=== PATIENT | female | born 2000 ===

== ENCOUNTER 2022-07-11 10:17 | Outpatient (CLI) | payer OTHER ==
--- NOTE | 2022-07-11 14:10 | Ultrasound Report ---
PROCEDURE: Head or Neck Soft Tissue INDICATIONS: ENLARGED THYROID TECHNIQUE: Real-time scanning was performed of the thyroid gland, with image documentation. COMPARISON: None FINDINGS: Right: Thyroid lobe measures 3.9 x 1.6 x 1.7 cm, and is homogeneous in echotexture. Left: Thyroid lobe measures 4.5 x 1.7 x 1.2 cm, and is homogenous in echotexture. Isthmus: 3 mm thick. No thyroid nodules. IMPRESSION: Normal sonographic appearance of the thyroid. No nodules. Normal size. Reviewed by: Rickey Taylor on 07/11/2022 2:08 PM PDT Approved by: Rickey Taylor on 07/11/2022 2:08 PM PDT Station ID: [id number]
== END 2022-07-11 10:18 | disposition home or self-care (01) ==
LOC: DI 10:17
PROVIDERS: ATTEND Physician Assistant
DX: E04.9 Nontoxic goiter, unspecified (principal); M54.50 Low back pain, unspecified; M25.551 Pain in right hip; M25.552 Pain in left hip

== ENCOUNTER 2022-07-11 10:39 | Outpatient (CLI) | payer OTHER ==
--- NOTE | 2022-07-11 15:48 | XRAY Report ---
PROCEDURE: Lumbar Spine 2 View INDICATIONS: LOW BACK PX, L HIP PX TECHNIQUE: 2 views of the lumbar spine were acquired. COMPARISON: None. FINDINGS: Bones: 5 [id number] vertebrae are present. There is loss of normal lumbar lordosis and otherwi se normal bony alignment. No vertebral body compression fractures. No suspicious bony lesions. Soft tissues: Overlying bowel gas pattern is normal. No suspicious soft tissue calcifications. IMPRESSION: No acute fracture. No osseous lesion. If symptoms and/or clinical suspicion for patholog y continue, further assessment with repeat plain films, or advanced imaging (e.g., CT, MRI, or bone s can) is recommended for further assessment. Reviewed by: Luda Richardson MD on 07/11/2022 3:46 PM PDT Approved by: Luda Richardson MD on 07/11/2022 3:46 PM PDT Station ID: [id number]
--- NOTE | 2022-07-11 15:48 | XRAY Report ---
PROCEDURE: Hips 2V BILAT INDICATIONS: LOW BACK PAIN, HIP PX TECHNIQUE: One view of the pelvis and one view of each hip. COMPARISON: None FINDINGS: Bones: No fractures or dislocations. No suspicious bony lesions. The visualized pelvic ring appear s intact. Soft tissues: No suspicious soft tissue calcifications or masses. IMPRESSION: No acute fracture. No osseous lesion. If symptoms and/or clinical suspicion for pathology continue, f urther assessment with repeat plain films, or advanced imaging (e.g., CT, MRI, or bone scan) is recom mended for further assessment. Reviewed by: Luda Richardson MD on 07/11/2022 3:47 PM PDT Approved by: Luda Richardson MD on 07/11/2022 3:47 PM PDT Station ID: [id number]
== END 2022-07-11 10:40 | disposition home or self-care (01) ==
LOC: DI 10:39
PROVIDERS: ATTEND Physician Assistant
DX: M54.50 Low back pain, unspecified (principal); M25.551 Pain in right hip; M25.552 Pain in left hip

== ENCOUNTER 2022-08-16 13:05 | Outpatient (CLI) | payer OTHER ==
--- NOTE | 2022-08-16 13:43 | SLEEP CARE CONSULTATION ---
Information from patient questionnaire entered by Rhett Fox. I have reviewed and concur with the information entered by Rhett Fox. This document represents the service I personally performed and the decisions made by me, Page Caraballo ARNP. History of Present Illness Service Date and Time: 08/16/2022 1305 Reason for Visit: New patient Accompanied by: Spouse Chief Complaint: reports: Insomnia, Snoring, Frequent awakenings at night Date of Onset: SINCE I CAN REMEMBER Usual bedtime: 10-11PM Time it takes to fall asleep: LESS THAN 10MINS Snores at night: Yes Observed to quit breathing while asleep: No Sleeps alone due to snoring: No Number of times waking at night: 3-4 Reasons for waking at night: reports: Choking, Snoring, Gasping for air, Pain, Bathroom Toss, Turn, or Twitch while sleeping: Yes Recalls having dreams: Yes Usually gets out of bed at: 9-10AM Feels refreshed in the morning: Yes (depends, sometimes not) Morning headache: Yes (almost daily; most resolve in AM but some last all day) Sleepy or fatigued during the day: No Ever fallen asleep while driving: Yes (drowsy driving; pulls over if sleepy) Takes day naps: Yes (2-3 short naps or one long one) Dreams during day naps: Yes Prior sleep studies: No Additional HPI information: I had the pleasure of seeing JACINTA ORTIZ today regarding the possibility of her having a sleep disorder. Her current complaints are frequent night awakenings, insomnia and snoring. She is accompanied by her today. She states she wakes up frequently and does not feel rested in the mornings. She will have to take naps during the day to feel rested, 2-3 daily. She averaged 15-30 minutes to fall asleep. She wakes up between 1-5 times a night. She will lay in bed and wait to fall asleep between 15 minutes to 2 hours. She snores loudly but her spouse will still sleep in same room. He denies noting any pauses in breathing. She states she wakes up several times gasping for air. She has difficulty with swallowing and will "choke" on solid foods, especially when the food particles gets stuck behind her large tonsils. She tells me that her father has sleep apnea and is using a CPAP machine. - Parasomnia Symptoms Ever been unable to move upon waking from sleep: Yes (2-3 times that can remember) Walks in sleep: No Talks in sleep: No Ever acted out dreams in sleep: No Ever felt weak in the knees when startled or emotional: Yes (unsure) Bothered by creepy, crawly, restless sensations in legs: Yes (if does a lot of exercise, has pin/needles lower ankles/legs) Problems with memory or concentration: Yes (both, memory seems to be worse) Subjective Initial [place] Sleepiness Scale score: 15 (08/16/22) Past Medical History Past Medical History: reports: Other (no significant medical history) Social History The patient's occupation is a [employer]. Patient is and lives in . Have you smoked in the past 12 months: No Alcohol use: Yes Alcohol amount and frequency: 1 SHOT EVERY FAMILY EVENT Caffeine use: Yes Caffeine amount and frequency: stopped coffee about 4 months ago Family History Family history of sleep disordered breathing: Yes Family Hx Sleep Apnea: Father: Snoring, Sleep apnea - Treated Allergies and Home Medications Known drug allergies: No Drug allergies reviewed: Yes Home medication list reviewed: Yes (no daily medications) Review of Systems Weight gain over past 5 years: 80 Weight loss over past 5 years: 27 Cardiovascular: denies: high blood pressure Respiratory: reports: shortness of breath Gastrointestinal: reports: difficulty swallowing (feels like choking when eating solids). denies: heartburn Neurological: reports: head trauma (lot concussions as a kid). denies: headaches, seizure Psychiatric: reports: claustrophobia Ear/Nose/Throat: reports: nasal congestion, sinus problems, dry mouth/throat (occasionally in the morning), hoarseness, injury to nose. denies: tonsillectomy, wisdom teeth removed Musculoskeletal: reports: joint pain, neck pain, back pain, muscle pain or cramping Physical Exam Vital signs obtained and entered by: RHETT Ramos MA Blood Pressure: 128/60 (LEFT ARM) Cuff size: regular Heart Rate: 76 O2 Saturation: 98 Height: 5 ft 8 in Weight: 173 lb 3.2 oz Body Mass Index: 26.3 BMI Classification: Overweight Neck circumference: 14 Mouth and throat: normal Soft palate: normal Hard palate: normal Uvula: normal Uvula visualization: 100% Mallampati Class I Tongue: normal in size Tonsils: 2+ Chin and jaw: normal size and position Neck: normal w/o lymphadenopathy or thyromegaly Heart: regular rate and rhythm Lungs: clear bilaterally Impression and Plan 1. Suspected Obstructive Sleep Apnea-Hypopnea Syndrome, as suggested by a history of loud and irregular snoring, gasping or choking in sleep, morning headache, frequent awakening during the night, unrefreshed sleep, cognitive impairment, and excessive daytime sleepiness. Narrow oropharynx and obesity are common predisposing factors for obstructive sleep apnea-hypopnea syndrome. I recommend proceeding to polysomnography to confirm the diagnosis and to assess severity. If the patient has significant sleep disordered breathing, a manual CPAP titration study will also be performed to find the optimal treatment pressure. I informed the patient of what the sleep studies involve and after some discussion, obtained agreement to proceed. The pathophysiology of obstructive sleep apnea-hypopnea syndrome was discussed with the patient and health risks of cardiovascular and cerebrovascular disease if not treated. Risks of drowsy driving discussed in detail and patient advised to avoid long di stance driving and to pullman car clerk at the first sign of drowsiness. Patient agreed to plan. * Schedule polysomnography +- manual CPAP titration study and return in 1-2 weeks after the study to discuss result and initiate therapy. * Avoid long distance driving or driving when feeling sleepy. * Avoid alcohol, sedative and muscle relaxant around bedtime. * Attempt to lose weight. * Review instructions provided by trained office staff on how to prepare for the sleep study. * Return for follow-up after sleep study completed. Counseling Topics: Weight loss health impact Visit Type: In Office Other Participants: Spouse/Significant Other Time Spent with Patient (minutes): 31 Provider Statement: I spent 100% of the Face to Face Visit with the patient with greater than 50% spent counseling the patient and coordination of care.
[2022-08-16 14:32] VITALS: BP 128/60
== END 2022-08-16 13:06 | disposition home or self-care (01) ==
LOC: SC 13:05
PROVIDERS: ATTEND Nurse Practitioner Family
DX: G47.10 Hypersomnia, unspecified (principal); G47.8 Other sleep disorders; R51.9 Headache, unspecified; R06.83 Snoring; E66.3 Overweight; Z68.26 Body mass index [BMI] 26.0-26.9, adult
CPT/HCPCS: 99203; 99212

== ENCOUNTER 2022-09-18 19:43 | Outpatient (CLI) | payer OTHER | END 2022-09-18 19:44 | disposition home or self-care (01) | LOC: SC 19:43 | PROVIDERS: ATTEND Nurse Practitioner Family | DX: G47.33 Obstructive sleep apnea (adult) (pediatric) (principal) | CPT/HCPCS: 95810 ==

== ENCOUNTER 2022-10-05 15:30 | Outpatient (CLI) | payer OTHER ==
--- NOTE | 2022-10-05 15:54 | SLEEP CARE CONSULTATION ---
Information from patient questionnaire entered by Jason Cruz. I have reviewed and concur with the information entered by Jason Cruz. This document represents the service I personally performed and the decisions made by , Page Caraballo ARNP. History of Present Illness Service Date and Time: 10/05/2022 1530 Initial [place] Sleepiness Scale score: 15 (08/16/22) Current [place] Sleepiness Scale score: 12 Additional HPI information: JACINTA ORTIZ returns for follow up and results of the recently performed polysomnography. Patient PSG shows mild obstructive sleep apnea with an average AHI of 6.9 and sheeba oxygen saturation of 89%. I explained the pathophysiology behind obstructive sleep apnea. We then spent quite a bit of time discussing different treatment options. For mild obstructive sleep apnea, surgery and oral appliance are alternatives to nasal CPAP therapy but in moderate or severe cases, nasal CPAP is the most effective and reliable treatment. Because apnea is primarily in supine position, then positional management therapy could be effective. Methods discussed such as positioning with pillows, using a T-shirt with tennis balls in the back or commercial products that have a pillow format on back to prevent supine sleep. I reviewed the impact of weight changes on sleep apnea and strongly recommended losing weight. After some discussion, the patient opted to go with the nasal CPAP therapy. Nasal autoCPAP set at 4-15 cmH20 will be ordered with rationale explained. A manual titration study will be ordered if unable to find optimal pressure with office adjustments. I explained how CPAP machine works and what to expect when using the machine. Using CPAP every night in order to get used to it was emphasized. Patient advised to put CPAP mask on before getting into bed so as not to fall asleep without CPAP. To assist acclimation to CPAP use, it could also be used for a short time during day while reading or watching TV. The patient was instructed to call the CPAP supplier to discuss any mechanical problem that may occur. If the mask given is uncomfortable or is difficult to keep on through the night even with adjustment, contact the CPAP supplier as many will replace with another mask style if notified before 30 days. If snoring or perceives is not getting enough air or too much air from the machine, notify this office. Patient counseled not drink alcohol less than 4 hours befor e bedtime as it can increase snoring and apnea. Patient was cautioned about risks of drowsy driving until sleepiness symptoms resolve. Patient denies drowsy driving. Sleep Study - Results Type of Sleep Study: Polysomnography Prior sleep studies: No Polysomnography/Home Sleep Study results: IMPRESSION: The quality of the study is good. The patient had normal sleep efficiency. The sleep architecture was abnormal for sleep fragmentation and reduced amount of time spent in REM and slow wave sleep (N3). Respiratory monitoring showed mild obstructive sleep apnea-hypopnea (AHI = 6.9) associated with frequent arousals, oxyhemoglobin desaturation and minimal hypoxia (sheeba oxygen saturation of 89%). The patient slept almost exclusively in supine position (supine AHI = 7.2; non-supine = 0.00). Snore was light in intensity. There was no significant periodic leg movement of sleep. Cardiac rhythm was normal sinus rhythm without significant arrhythmia. No abnormal behavior (parasomnia) observed during the night Allergies and Home Medications Known drug allergies: No Drug allergies reviewed: Yes Home medication list reviewed: Yes (no changes) Review of Systems Review of systems same as previous: Yes (no changes) Physical Exam Vital signs obtained and entered by: Page Archibald NP Blood Pressure: 112/51 Cuff size: wrist (right) Heart Rate: 73 O2 Saturation: 98 Height: 5 ft 8 in Weight: 188 lb Body Mass Index: 28.5 BMI Classification: Overweight Impression and Plan 1. Obstructive Sleep Apnea-Hypopnea Syndrome, mild, with lowest oxygen saturation of 89% and a component of upper airway resistance with an RDI of 27.1. Obviously this is the cause of the patients symptoms of unrefreshed sleep, and excessive daytime sleepiness. As mentioned above, the patient will be started on nasal autoCPAP therapy with pressure set at 4-15 cmH2O. Compliance guidelines also reviewed. A copy of compliance guidelines will be given for reference at check out. * Nasal auto CPAP therapy, pressure at 4-15 cm H2O. * Attempt to lose weight. * Avoid alcohol consumption near bedtime. * Avoid supine sleep until using CPAP. * The patient is again cautioned about driving until sleepiness completely resolves. * Return one month after CPAP obtained. I will assess response to therapy and compliance at that time. Counseling Topics: Sleeping position, Weight loss health impact Visit Type: In Office Time Spent with Patient (minutes): 20 Provider Statement: I spent 100% of the Face to Face Visit with the patient with greater than 50% spent counseling the patient and coordination of care.
[2022-10-05 15:59] VITALS: BP 112/51
== END 2022-10-05 15:31 | disposition home or self-care (01) ==
LOC: SC 15:30
PROVIDERS: ATTEND Nurse Practitioner Family
DX: G47.33 Obstructive sleep apnea (adult) (pediatric) (principal); E66.3 Overweight; Z68.28 Body mass index [BMI] 28.0-28.9, adult
CPT/HCPCS: 99212; 99213

== ENCOUNTER 2023-02-27 10:49 | Outpatient (CLI) | payer OTHER ==
--- NOTE | 2023-02-27 11:39 | Sleep Patient Instructions ---
Sleep Center Visit Summary - Patient Visit Information Reason for Visit: 1st compliance followup with PAP therapy - Patient Instructions Additional Instructions: You were here for follow up of CPAP therapy. You will be continued on CPAP therapy with pressure at 5-8 cmH2O. Please let us know if the pressure change is uncomfortable and we can make further adjustments of the pressure. You should follow up with sleep care in 1-2 months. You may contact us sooner for any questions or concerns. - Clinic Information Contact: [facility] [address] [place] [address] [email or web address] T: [phone]
--- NOTE | 2023-02-27 11:46 | SLEEP CARE CONSULTATION ---
Information from patient questionnaire entered by Batsheva Fox. I have reviewed and concur with the information entered by Batsheva Fox. This document represents the service I personally performed and the decisions made by me, Pgae Caraballo ARNP. History of Present Illness Service Date and Time: 02/27/2023 1049 Previous diagnosis: Mild, Obstructive Sleep Apnea-Hypopnea Syndrome AHI: 6.9 (with RDI 27.1 in 2022) Reason for follow up: first compliance Accompanied by: Partner Equipment type: CPAP (RESMED Airsense 11, s/u 10/2022) Equipment obtained from: [employer] ([employer]) Mask style: Full face Backup mask available: No (will keep old mask when replaced) Last cushion change: couple weeks Prior sleep studies: No Type of Sleep Study: Polysomnography (08/2022) HPI additional information: JACINTA ORTIZ was diagnosed to have mild, AHI 6.9 with RDI 27.1, obstructive sleep apnea-hypopnea syndrome and returned today for CPAP therapy first compliance follow-up. Sleep Study - Results Type of Sleep Study: Polysomnography (09/18/2022) Prior sleep studies: No CPAP Compliance Data - Data Reviewed with Patient Average duration of nightly device use: 3 hours 59 minutes Compliance rate %: 20 (04/21 days used) Current pressure setting (cmH2O): 4-15 (median 5.8, avg 9.3, max 10.9) Average residual AHI: 1.7 (RERA 0.3) Central apnea: 0.8 Obstructive apnea: 0.2 Hypopnea: 0.5 Average large leak: 0.2 L/min Subjective Missed days of use due to: reports: mask issues, other (Insomnia) Patient concerns: reports: aerophagia, mask discomfort, air blowing in eyes, mask leak noise, condensation in mask/hose. denies: nasal congestion, dry mouth, nose, throat, epistaxis Observed to snore while using device: No Current pressure setting perceived as: comfortable On therapy, patient: reports: other (not sure if helping). denies: drowsiness while driving Initial [place] Sleepiness Scale score: 15 (08/16/22) Current [place] Sleepiness Scale score: 11 Allergies and Home Medications Known drug allergies: No Drug allergies reviewed: Yes Home medication list reviewed: Yes (no changes) Review of Systems Review of systems same as previous: Yes (no changes) Physical Exam Vital signs obtained and entered by: PAGE MARTINEZ-Richard Blood Pressure: 107/58 Cuff size: wrist (right) Heart Rate: 69 O2 Saturation: 98 Height: 5 ft 8 in Weight: 188 lb 12.8 oz Body Mass Index: 28.7 BMI Classification: Overweight Impression and Plan 1. Obstructive Sleep Apnea-Hypopnea Syndrome, mild, with poor treatment compliance and good apnea control. On CPAP therapy, the patient has better sleep quality and is more rested overall. She has had difficulty with her compliance due to having aerophagia, mask discomfort with air blowing into her eyes and also some condensation. I reviewed with her how to adjust for the condensation by increasing her heated hose, who is covering and putting the machine lower than her head by the bedside. I will also adjust her pressure to 5-8 cmH2O to compensate for aerophagia and to make it more comfortable. I fit her to a DreamWear nasal pillows mask, small cushion, to see if this will work better than the fullface that she is getting a lot of air leaking into her eyes and leak noises waking her up. I will have her follow-up in 1 to 2 months so we can see if this mask change will work for her as well as to recheck her compliance. She voiced understanding and agreement with plan. Patient's apnea severity and rationale for treatment to reduce apnea, improve sleep quality and reduce cardiovascular and cerebrovascular events was reviewed. 2. Overweight, unspecified. Currently patients BMI is 28.7. Obesity increases the risk of apnea, CPAP pressure requirements and overall health risks especially cardiovascular and diabetes. Thus patient is advised to lose weight. * Fitted to Dreamwear nasal pillows mask, small cushion with good fit * Change auto CPAP pressure to 5-8 cmH2O * Notify me if snoring with mask or feeling that the pressure is too much or too little * Attempt to lose weight * Call this office if any problems using CPAP * Return for follow up in 1-2 months, or sooner if concerns arise Mask provided: Yes Counseling Topics: Spare mask, Weight loss health impact Follow up with Sleep Care in: 1-2 months Visit Type: In Office Time Spent with Patient (minutes): 26 Provider Statement: I spent 100% of the Face to Face Visit with the patient with greater than 50% spent counseling the patient and coordination of care.
[2023-02-27 12:36] VITALS: BP 107/58; O2SAT 98
== END 2023-02-27 10:50 | disposition home or self-care (01) ==
LOC: SC 10:49
PROVIDERS: ATTEND Nurse Practitioner Family
DX: G47.33 Obstructive sleep apnea (adult) (pediatric) (principal); E66.3 Overweight; Z68.28 Body mass index [BMI] 28.0-28.9, adult
CPT/HCPCS: 99212; 99213

== ENCOUNTER 2023-03-30 10:47 | Outpatient (CLI) | payer OTHER ==
--- NOTE | 2023-03-30 11:16 | Sleep Patient Instructions ---
Sleep Center Visit Summary - Patient Visit Information Reason for Visit: 1 month followup - Patient Instructions Additional Instructions: You were here for follow up of CPAP therapy. You will be continued on CPAP therapy with pressure at 5-8 cmH2O. I have written for a mask refitting, your CPAP supplier should reach out to you. If not, please call them to have this done. You should follow up with sleep care in 1-2 months. You may contact us sooner for any questions or concerns. - Clinic Information Contact: [facility] [address] [place] [id number] [email or web address] T: [phone]
--- NOTE | 2023-03-30 11:22 | SLEEP CARE CONSULTATION ---
Information from patient questionnaire entered by Rhett Fox. I have reviewed and concur with the information entered by Rhett Fox. This document represents the service I personally performed and the decisions made by me, Page Caraballo ARNP. History of Present Illness Service Date and Time: 03/30/2023 1047 Previous diagnosis: Mild, Obstructive Sleep Apnea-Hypopnea Syndrome AHI: 6.9 (with RDI 27.1 in 2022) Reason for follow up: one month (F/U) Equipment type: CPAP (RESMED Airsense 11, s/u 7 2022) Equipment obtained from: [facility] (not getting supplies yet, waiting on shipment) Mask style: Full face Backup mask available: Yes (other mask) Last cushion change: unsure Prior sleep studies: No Type of Sleep Study: Polysomnography HPI additional information: JACINTA ORTIZ was diagnosed to have mild, AHI 6.9 with RDI 27.1, obstructive sleep apnea-hypopnea syndrome and returned today for CPAP therapy one month follow-up. Sleep Study - Results Type of Sleep Study: Polysomnography Prior sleep studies: No CPAP Compliance Data - Data Reviewed with Patient Average duration of nightly device use: 4 HRS 0 MINS Compliance rate %: 40 (02/26/23-03/27/23; 22/30 days used) Current pressure setting (cmH2O): 5-8 Average residual AHI: 1.8 (RERA 0.1) Central apnea: 0.7 Obstructive apnea: 0.6 Average large leak: 1.1 L/min Subjective Missed days of use due to: reports: mask issues (fell and chipped tooth; pain with nasal mask - using full face) Patient concerns: reports: mask discomfort, nasal congestion (only with full face mask), dry mouth, nose, throat Observed to snore while using device: No Current pressure setting perceived as: comfortable On therapy, patient: reports: sleeping better, awakening more refreshed, being more awake and alert during the day, more rested overall. denies: drowsiness while driving Initial [place] Sleepiness Scale score: 15 (08/16/22) Current [place] Sleepiness Scale score: 7 (03/30/23) Allergies and Home Medications Known drug allergies: No Drug allergies reviewed: Yes Home medication list reviewed: Yes (no changes) Review of Systems Review of systems same as previous: Yes (NO CHANGE) Physical Exam Vital signs obtained and entered by: RHETT Ramos MA Blood Pressure: 108/62 (LEFT ARM) Cuff size: regular Heart Rate: 68 O2 Saturation: 97 Height: 5 ft 8 in Weight: 186 lb 9.6 oz Body Mass Index: 28.3 BMI Classification: Overweight Impression and Plan 1. Obstructive Sleep Apnea-Hypopnea Syndrome, mild, with fair treatment compliance and good apnea control. On CPAP therapy, the patient has better sleep quality and is more rested overall. She fell and chipped a tooth about a month ago and has had harder time wearing nasal mask because of pain. This has affected her compliance. She likes the nasal mask better than the full face one she is trying to use while her mouth heals. She would like a different headgear for her nasal mask because the current one pulls a lot on her hair. I will write for a mask refitting for nasal mask, either cushion or pillows. She says that [facility] [place] has not sent her any new supplies, she has talked to them and they said they were shipped but she has not received them yet. I advised her to call again and if no response to call office for assistance. She voiced understanding. Patient's apnea severity and rationale for treatment to reduce apnea, improve sleep quality and reduce cardiovascular and cerebrovascular events was reviewed. 2. Overweight, unspecified. Currently patients BMI is 28.3. Obesity increases the risk of apnea, CPAP pressure requirements and overall health risks especially cardiovascular and diabetes. Thus patient is advised to lose weight. * Continue auto CPAP pressure at 5-8 cmH2O * Mask fitting for nasal mask, more minimal headgear * Notify me if snoring with mask or feeling that the pressure is too much or too little * Attempt to lose weight * Call this office if any problems using CPAP * Return for follow up in 1-2 months, or sooner if concerns arise Counseling Topics: Spare mask, Weight loss health impact Follow up with Sleep Care in: 1-2 months Visit Type: In Office Time Spent with Patient (minutes): 21 Provider Statement: I spent 100% of the Face to Face Visit with the patient with greater than 50% spent counseling the patient and coordination of care.
[2023-03-30 11:28] VITALS: BP 108/62; O2SAT 97
== END 2023-03-30 10:48 | disposition home or self-care (01) ==
LOC: SC 10:47
PROVIDERS: ATTEND Nurse Practitioner Family
DX: G47.33 Obstructive sleep apnea (adult) (pediatric) (principal); E66.3 Overweight; Z68.28 Body mass index [BMI] 28.0-28.9, adult
CPT/HCPCS: 99212; 99213

== ENCOUNTER 2023-04-05 13:25 | Outpatient (CLI) | payer OTHER | END 2023-04-05 13:26 | disposition critical access hospital (66) | LOC: EMS 13:25 | DX: R56.9 Unspecified convulsions (principal); R51.9 Headache, unspecified; R11.0 Nausea | CPT/HCPCS: A0425; A0427 ==

== ENCOUNTER 2023-04-05 13:48 | Emergency (ER) | payer OTHER ==
--- NOTE | 2023-04-05 13:55 | ED Physician Documentation ---
PD HPI SEIZURE - Stated complaint Stated Complaint: SEIZURE - History obtained from History obtained from: Patient, EMS - Additional information Additional information: She has a history of seizure disorder but not since she was a child. Not on any antiepileptics. Yesterday she was drinking moderately heavily and used some cannabis. Today she was at home with her and on the couch and had a tonic-clonic seizure lasting about a minute. She does not feel injured. She does feel dizzy. Mostly she is anxious because of her previous "bad experience" in the hospital. PD PAST MEDICAL HISTORY - Present Medications Home Medications: Ambulatory Orders Medication Instructions Recorded Confirmed Cetirizine [ZyrTEC] 10 mg PO DAILY 04/05/23 04/05/23 - Allergies Allergies/Adverse Reactions: Allergies Allergy/AdvReac Type Severity Reaction Status Date / Time No Known Drug Allergies Allergy Verified 04/05/23 14:06 PD ED PE NORMAL - Vitals Vital signs reviewed: Yes - General General: Alert and oriented X 3, Other (Tearful and anxious) - HEENT HEENT: PERRL, EOMI, Pharynx benign (No tongue bite) - Neck Neck: Supple, no meningeal sign, No bony TTP - Cardiac Cardiac: RRR, No murmur - Respiratory Respiratory: No respiratory distress - Abdomen Abdomen: Non tender - Neuro Neuro: Alert and oriented X 3, Normal speech Eye Opening: Spontaneous Motor: Obeys Commands Verbal: Oriented GCS Score: 15 Results - Vitals Vitals: Vital Signs - 24 hr 04/05/23 13:57 Temperature 36.6 C Heart Rate 95 Respiratory 18 Rate Blood Pressure 122/78 O2 Saturation 100 Oxygen O2 Source Room air - EKG (time done) 1426 EKG releavant findings:: EKG personally interpreted by author of this note. Relevant findings are: Rate: Rate (enter#) (84) Rhythm: NSR [place]: Normal Intervals: Normal LA. No: Prolonged QT QRS: Normal Ischemia: Normal ST segments - Labs Labs: Laboratory Tests 04/05/23 04/05/23 14:17 14:27 Sodium 138 Potassium 4.0 Chloride 105 Carbon Dioxide 25 Anion Gap 8.0 BUN 11 Creatinine 0.8 Estimated GFR (MDRD) 91 Glucose 77 Calcium 9.4 Magnesium 2.0 Total Bilirubin 0.4 AST 13 ALT 8 L Alkaline Phosphatase 59 Total Protein 7.4 Albumin 4.3 Globulin 3.1 Albumin/Globulin Ratio 1.4 Urine Color YELLOW Urine Clarity CLEAR Urine pH 7.0 Ur Specific [place] 1.025 Urine Protein 100 H Urine Glucose (UA) NEGATIVE Urine Ketones NEGATIVE Urine Occult Blood NEGATIVE Urine Nitrite NEGATIVE Urine Bilirubin NEGATIVE Urine Urobilinogen 0.2 (NORMAL) Ur Leukocyte Esterase NEGATIVE Urine RBC 0-5 Urine WBC 0-3 Ur Squamous Epith Cells MOD Squamous H Urine Bacteria Few Urine Mucus Few Strands Ur Microscopic Review INDICATED Urine Culture Comments NOT INDICATED Urine HCG, Qual NEGATIVE Urine Opiates Screen NEGATIVE Ur Buprenorphine Scrn NEGATIVE Ur Oxycodone Screen NEGATIVE Urine Methadone Screen NEGATIVE Ur Barbiturates Screen NEGATIVE Ur Tricyclics Screen NEGATIVE Ur Phencyclidine Scrn NEGATIVE Ur Amphetamine Screen NEGATIVE U Methamphetamines Scrn NEGATIVE U Benzodiazepines Scrn NEGATIVE Urine Cocaine Screen NEGATIVE U Cannabinoids Screen POSITIVE H Ur Drug Screen Comment CUTOFF CONC BELOW: Ethyl Alcohol < 10.0 - Rads (name of study) CT of the head is unremarkable Relevant Findings:: Final report received, EMP independent interpretation of test PD Medical Decision Making - ED course ED course: 22-year-old woman presents after a seizure. I would define this is a new onset seizure since reportedly her last seizure was at the age of 7. Diagnostic testing in the emergency department consisted of a CMP which was normal, normal urinalysis and test. Negative alcohol and toxicology screening with the exception of cannabis. EKG was done without findings suggestive of underly ing heart disease or arrhythmia. Departure - Departure Disposition: 01 Home, Self Care Clinical Impression: Seizure Condition: Good Instructions: ED Seizure New Onset Unk Cause Comments: Per [place] state law you are not allowed to drive for the next 6 months until seizure-free or unless cleared by a neurologist. You should follow-up with a neurologist, call your primary care physician for referral tomorrow. Until cleared by neurology should also not do anything where you would be in danger should you have another seizure such as go up on ladders, swim alone, operate heavy machinery. Abstain from alcohol and do not use cannabis heavily.
[2023-04-05 14:08] VITALS: O2SAT 100
[2023-04-05 14:32] LABS: BILIRUBIN,URINE NEGATIVE (NEGATIVE); GLUCOSE, URINE (UA) NEGATIVE (NEGATIVE); KETONES,URINE (UA) NEGATIVE (NEGATIVE); LEUKOCYTE ESTERASE, URINE NEGATIVE (NEGATIVE); NITRITE,URINE NEGATIVE (NEGATIVE); OCCULT BLOOD,URINE NEGATIVE (NEGATIVE); PROTEIN,URINE 100 mg/dL (NEGATIVE); UROBILINOGEN,URINE 0.2 (NORMAL) E.U./dL (NORMAL)
[2023-04-05 14:33] LABS: CLARITY,URINE CLEAR (CLEAR); HCG UR QUAL NEGATIVE
[2023-04-05 14:35] LABS: ALBUMIN 4.3 g/dL (3.2-5.5); ALBUMIN/GLOBULIN RATIO 1.4 (1.0-2.2); ALKALINE PHOSPHATASE 59 IU/L (42-121); ALT ALANINE AMINOTRANSFERASE 8 IU/L (10-60); AST ASPARTATE AMINOTRANSFERASE 13 IU/L (10-42); BILIRUBIN,TOTAL 0.4 mg/dL (0.2-1.0); BUN - BLOOD UREA NITROGEN 11 mg/dL (6-20); CALCIUM 9.4 mg/dL (8.5-10.3); CARBON DIOXIDE - CO2 25 mmol/L (21-32); CHLORIDE 105 mmol/L (101-111); CREATININE 0.8 mg/dL (0.6-1.3); ETOH - ETHANOL < 10.0 mg/dL; GFR - MDRD 91 (>89); GLUCOSE 77 mg/dL (74-104); SODIUM 138 mmol/L (135-145); TOTAL PROTEIN 7.4 g/dL (6.4-8.9)
[2023-04-05 14:39] LABS: BACTERIA,URINE Few /HPF (None Seen); MUCUS,URINE Few Strands; RBC,URINE 0-5 /HPF (0-5); SQUAMOUS EPITHELIAL CELL,UR MOD Squamous (<= Few); WBC,URINE 0-3 /HPF (0-5)
[2023-04-05 14:41] LABS: AMPHETAMINE SCREEN,URINE NEGATIVE (NEGATIVE); BARBITURATE SCREEN,UR NEGATIVE (NEGATIVE); BENZODIAZEPINES SCREEN, URINE NEGATIVE (NEGATIVE); BUPRENORPHINE SCREEN, URINE NEGATIVE (NEGATIVE); COCAINE SCREEN URINE NEGATIVE (NEGATIVE); METHADONE SCREEN, URINE NEGATIVE (NEGATIVE); METHAMPHETAMINES SCREEN, URINE NEGATIVE (NEGATIVE); OPIATE SCREEN, URINE NEGATIVE (NEGATIVE); OXYCODONE SCREEN, URINE NEGATIVE (NEGATIVE); THC CANNABINOID SCREEN, URINE POSITIVE (NEGATIVE); TRICYCLIC ANTIDEPRESSANT,URINE NEGATIVE (NEGATIVE)
--- NOTE | 2023-04-05 15:20 | CT Report ---
PROCEDURE: HEAD WO INDICATIONS: seizure TECHNIQUE: Noncontrast 4.5 mm thick angled axial sections acquired from the foramen magnum to the vertex. For r adiation dose reduction, the following was used: automated exposure control, adjustment of mA and/or kV according to patient size. COMPARISON: None. FINDINGS: Image quality: Excellent. CSF spaces: Basal cisterns are patent. No extra-axial fluid collections. Ventricles are normal in size and shape. Brain: No midline shift. No intracranial masses or hemorrhage. Arzola-white matter interface is norm al. Skull and face: Calvarium and visualized facial bones are intact, without suspicious lesions. Sinuses: Visualized sinuses and mastoids are clear. IMPRESSION: No acute intracranial pathology. Reviewed by: Luda Richardson MD on 04/05/2023 3:18 PM PST Approved by: Luda Richardson MD on 04/05/2023 3:18 PM [facility] Station ID: [id number]
[2023-04-05 15:55] VITALS: BP 108/66
== END 2023-04-05 16:01 | disposition home or self-care (01) ==
LOC: EDUNIT# → ED 13:48
DX: R56.9 Unspecified convulsions (principal)
CPT/HCPCS: 36415; 80053; 80306; 80320; 81001; 81003; 81025; 83735; 87086; 93005; 99284

== ENCOUNTER 2023-04-05 22:09 | Emergency (ER) | payer OTHER ==
[2023-04-05] MEDS ORDERED: ONDANSETRON ODT 4 MG TABLET TL STA (22:37)
[2023-04-05] MEDS ORDERED: levETIRAcetam 250 MG TABLET PO STA (22:39)
--- NOTE | 2023-04-05 22:44 | ED Physician Documentation ---
PD HPI SEIZURE - Stated complaint Stated Complaint: SEIZURE/VOMIT - Chief complaint Chief Complaint: Neuro - History obtained from History obtained from: Patient, Family (spouse) - Additional information Additional information: 22yF with pmh childhood seizure disorder (last seizure at age 7) p/w recurrent seizure today. patient was seen earlier today for first time gen tonic clonic seizure with full return to baseline and had bloodwork, ct and ekg that were unremarkable. she returned home and had second GTC seizure around 8pm with return to baseline. patient c/o nausea and feeling tired but otherwise denies complaints. Review of Systems Constitutional: denies: Fever, Chills Eyes: denies: Loss of vision, Photophobia Nose: denies: Rhinorrhea / runny nose Throat: denies: Sore throat Cardiac: denies: Chest pain / pressure, Palpitations Respiratory: denies: Dyspnea GI: reports: Nausea, Vomiting. denies: Abdominal Pain, Diarrhea : denies: Dysuria Musculoskeletal: denies: Neck pain, Back pain Neurologic: reports: Seizure. denies: Focal weakness, Numbness PD PAST MEDICAL HISTORY - Past Medical History Past Medical History: Yes Cardiovascular: None Respiratory: None Neuro: Seizure disorder Endocrine/Autoimmune: None GI: None MANAGER DRUG SAFETY: None : None HEENT: None Psych: None Musculoskeletal: None, Chronic back pain Derm: None - Past Surgical History Past Surgical History: No - Present Medications Home Medications: Ambulatory Orders Medication Instructions Recorded Confirmed Cetirizine [ZyrTEC] 10 mg PO DAILY 04/05/23 04/05/23 Levetiracetam [Keppra] 1,000 mg PO BID #60 tablet 04/05/23 - Allergies Allergies/Adverse Reactions: Allergies Allergy/AdvReac Type Severity Reaction Status Date / Time No Known Drug Allergies Allergy Verified 04/05/23 22:24 - Social History Does the pt smoke?: No Smoking Status: Never smoker Does the pt drink ETOH?: No Does the pt have substance abuse?: No - Immunizations Immunizations are current?: Yes - POLST Patient has POLST: No PD ED PE NORMAL - Vitals Vital signs reviewed: Yes - General General: Alert and oriented X 3, No acute distress, Well developed/nourished - HEENT HEENT: Atraumatic, PERRL, EOMI - Neck Neck: Supple, no meningeal sign - Cardiac Cardiac: RRR - Respiratory Respiratory: No respiratory distress, Clear bilaterally - Abdomen Abdomen: Non tender, Non distended - Derm Derm: Normal color, Warm and dry - Neuro Neuro: Alert and oriented X 3, contract preparer 2-12 intact, No motor deficit, No sensory deficit, Normal speech Eye Opening: Spontaneous Motor: Obeys Commands Verbal: Oriented GCS Score: 15 - Psych Psych: Normal mood, Normal affect Results - Vitals Vitals: Vital Signs - 24 hr 04/05/23 04/05/23 22:10 22:24 Temperature 36.1 C L 36.1 C L Heart Rate 101 H 101 H Respiratory 22 22 Rate Blood Pressure 120/92 H 120/92 H O2 Saturation 99 99 Oxygen O2 Source Room air PD Medical Decision Making - ED course ED course: 22-year-old woman with history of childhood seizure disorder presents with 2 seizures with return to baseline in between today. Initially she had unremarkable workup including CT head, lab work, EKG, and decision was made to discharge without antiseizure medicine to follow-up with primary care provider for referral to neurology. She then had a second seizure with postictal nausea and vomiting return to the emergency department. She has normal neurological exam here in the ED and responded well to oral Zofran, tolerating p.o. Antiseizure medicine was initiated in the ED and prescription sent el ectronically to her pharmacy. Referral provided for neurology. Return precautions given. Departure - Departure Disposition: 01 Home, Self Care Clinical Impression: Seizure Condition: Stable Instructions: ED Seizure Recurrent Follow-Up: Mala Gallegos MD [Physician No Access] - Yoly Polanco MD [Physician No Access] - Prescriptions: Levetiracetam [Keppra] 1,000 mg PO BID #60 tablet Comments: You were seen in the emergency department for recurrent seizure. Prescription for antiseizure medicine was sent electronically to [facility] in [place]. Please follow-up with neurology and return to the emergency department if you have any new or worsening symptoms or other concerns. Forms: PCP List
[2023-04-06 00:44] VITALS: BP 106/50; O2SAT 97
== END 2023-04-06 00:25 | disposition home or self-care (01) ==
LOC: ED 22:09
DX: R56.9 Unspecified convulsions (principal); R11.2 Nausea with vomiting, unspecified
CPT/HCPCS: 36415; 70450; 80053; 80306; 80320; 81001; 81025; 83735; 93005; 99284; A9270; Q0162; 81003; 87086

== ENCOUNTER 2023-05-24 10:41 | Outpatient (CLI) | payer OTHER ==
--- NOTE | 2023-05-24 11:18 | Sleep Patient Instructions ---
Sleep Center Visit Summary - Patient Visit Information Reason for Visit: 7-week follow-up - Patient Instructions Instructions Attached: Apnea Sleep Mouthpieces Additional Instructions: You have opted for an oral mandibular appliance to control your sleep apnea. A list of certified dentists in the area was provided for you to find a dentist to have your oral appliance made. Once you have the device, please call and make a follow up appointment. We need to see you after you have been using the appliance for a month. We will evaluate your response to therapy and order a follow up sleep study to check efficiency of treatment. Please call office to schedule a follow up appointment in the sleep care office one month after obtaining new device. - Clinic Information Contact: [facility] [address] [place] [address] [email or web address] T: [phone]
--- NOTE | 2023-05-24 11:22 | SLEEP CARE CONSULTATION ---
Information from patient questionnaire entered by Batsheva Fox. I have reviewed and concur with the information entered by Batsheva Fox. This document represents the service I personally performed and the decisions made by , Page Caraballo ARNP. History of Present Illness Service Date and Time: 05/24/2023 1041 Previous diagnosis: Mild, Obstructive Sleep Apnea-Hypopnea Syndrome AHI: 6.9 Reason for follow up: other (7 WEEK F/U) Equipment type: CPAP (RESMED SD) Equipment obtained from: [employer] (hard time getting right supplies; returned machine) Prior sleep studies: No Type of Sleep Study: Polysomnography (09/18/2022) HPI additional information: JACINTA ORTIZ was diagnosed to have mild, AHI 6.9, obstructive sleep apnea- hypopnea syndrome and returned today for review of her therapy options, seven weeks follow-up. Sleep Study - Results Type of Sleep Study: Polysomnography (09/18/2022) Prior sleep studies: No CPAP Compliance Data - Data Reviewed with Patient Average duration of nightly device use: 2 hours 58 minutes Compliance rate %: 13 ( days used) Current pressure setting (cmH2O): 5-8 Average residual AHI: 3.6 Compliance data discussion: Patient returned machine. No longer using CPAP. Subjective On therapy, patient: reports: sleeping better, more rested overall. denies: drowsiness while driving Initial [place] Sleepiness Scale score: 15 (08/16/22) Current [place] Sleepiness Scale score: 9 Allergies and Home Medications Known drug allergies: No Drug allergies reviewed: Yes Home medication list reviewed: Yes (no changes) Allergy and home medication list: Allergies No Known Drug Allergies Allergy (Verified 05/22/23 14:48) Review of Systems Review of systems same as previous: Yes (no changes) Physical Exam Vital signs obtained and entered by: CHRISTEN SAHU Blood Pressure: 103/57 Cuff size: wrist (left) Heart Rate: 63 O2 Saturation: 98 Height: 5 ft 8 in Weight: 181 lb 6.4 oz Body Mass Index: 27.6 BMI Classification: Overweight Impression and Plan 1. Obstructive Sleep Apnea-Hypopnea Syndrome, mild. The patient chose an oral appliance to treat their apnea. A follow up will be made to see if appliance has reduced symptoms. If so, another polysomnography will be ordered with use of the oral appliance to check efficacy in reducing apnea. She was given a list of dentists in the area that are qualified to make the oral appliances. She will need to reach out to them and find one that can work with her insurance. She will call us when she has her new device for follow-up. She voiced understanding and agreement with this plan of care. Patient's apnea severity and rationale for treatment to reduce apnea, improve sleep quality and reduce cardiovascular and cerebrovascular events was reviewed. 2. Overweight, unspecified. Currently patients BMI is 27.6. Obesity increases the risk of apnea, CPAP pressure requirements and overall health risks especially cardiovascular and diabetes. Thus patient is advised to continue to try to lose weight. * Oral Appliance * Continue to try to lose weight * Call this office if any problems * Return for follow up in one month after obtaining new oral device, or sooner if concerns arise Counseling Topics: Weight loss health impact Prescriptions: Other (Oral Device) Visit Type: In Office Time Spent with Patient (minutes): 16 Provider Statement: I spent 100% of the Face to Face Visit with the patient with greater than 50% spent counseling the patient and coordination of care.
[2023-05-24 11:25] VITALS: BP 103/57; O2SAT 98
== END 2023-05-24 10:42 | disposition home or self-care (01) ==
LOC: SC 10:41
PROVIDERS: ATTEND Nurse Practitioner Family
DX: G47.33 Obstructive sleep apnea (adult) (pediatric) (principal); E66.3 Overweight; Z68.27 Body mass index [BMI] 27.0-27.9, adult
CPT/HCPCS: 99212

== ENCOUNTER 2023-07-18 11:40 | Outpatient (CLI) | payer OTHER | END 2023-07-18 23:59 | disposition critical access hospital (66) | LOC: EMS 11:40 | DX: R56.9 Unspecified convulsions (principal) | CPT/HCPCS: A0425; A0427 ==

== ENCOUNTER 2023-07-18 12:07 | Emergency (ER) | payer OTHER ==
--- NOTE | 2023-07-18 12:11 | ED Physician Documentation ---
PD HPI SEIZURE - Stated complaint Stated Complaint: SZ - History obtained from History obtained from: EMS - Additional information Additional information: 24-year-old female transitioning to male. Has a history of seizure disorder as a child and was seen in March for seizures here. At that time was placed on Keppra 1000 mg p.o. twice daily. EMS states she has not been taking it and it is unclear if she has had any follow-up since then. Has had approximately 4 seizures today. She also sees on the road on the way here and received 5 mg of intramuscular Versed. On arrival she is postictal and nonverbal so all of the history is from EMS. PD PAST MEDICAL HISTORY - Past Medical History Cardiovascular: None Respiratory: None Neuro: Seizure disorder Endocrine/Autoimmune: None GI: None GEOGRAPHIC INFORMATION SYSTEMS ENGINEER: None : None HEENT: None Psych: None Musculoskeletal: None, Chronic back pain Derm: None - Past Surgical History Past Surgical History: No - Present Medications Home Medications: Ambulatory Orders Medication Instructions Recorded Confirmed Cetirizine [ZyrTEC] 10 mg PO DAILY 04/05/23 04/05/23 Levetiracetam [Keppra] 1,000 mg PO BID #60 tablet 04/05/23 Topiramate 50 mg PO DAILY #90 tablet 07/18/23 oxyCODONE [Roxicodone] 5 mg PO Q4-6H PRN #7 tablet 07/18/23 - Allergies Allergies/Adverse Reactions: Allergies Allergy/AdvReac Type Severity Reaction Status Date / Time No Known Drug Allergies Allergy Verified 05/22/23 14:48 - Social History Does the pt smoke?: No Smoking Status: Never smoker Does the pt drink ETOH?: No Does the pt have substance abuse?: No - Immunizations Immunizations are current?: Yes - POLST Patient has POLST: No PD ED PE NORMAL - Vitals Vital signs reviewed: Yes - General General: Other (Sonorous respirations but appearing to protect her airway. No blood from the oropharynx. Kind of flailing around and responsive to pain, but not responsive to voice.) - HEENT HEENT: Other ([place] sluggishly reactive pupils) - Neck Neck: Supple, no meningeal sign, No bony TTP - Cardiac Cardiac: RRR, No murmur - Respiratory Respiratory: No respiratory distress - Abdomen Abdomen: Non tender - Neuro Neuro: Other (Moving all 4 extremities) Eye Opening: None Motor: Localizes to Pain Verbal: None GCS Score: 7 Results - Vitals Vitals: Vital Signs - 24 hr 07/18/23 07/18/23 07/18/23 12:13 12:45 13:15 Temperature 36.7 C Heart Rate 140 H 112 H 108 H Respiratory 40 H 18 16 Rate Blood Pressure 122/59 L 113/79 O2 Saturation 95 94 98 07/18/23 14:00 Temperature Heart Rate 100 Respiratory 18 Rate Blood Pressure O2 Saturation 100 Oxygen O2 Source Room air - Labs Labs: Laboratory Tests 07/18/23 07/18/23 13:35 13:35 Sodium 136 Potassium 4.2 Chloride 108 Carbon Dioxide 20 L Anion Gap 8.0 BUN 13 Creatinine 0.8 Estimated GFR (MDRD) 91 Glucose 110 H Calcium 9.4 Total Bilirubin 0.4 AST 17 ALT 9 L Alkaline Phosphatase 62 Total Protein 7.2 Albumin 4.2 Globulin 3.0 Albumin/Globulin Ratio 1.4 Serum HCG, Qual NEGATIVE PD Medical Decision Making - ED course ED course: 22-year-old who is transitioning from female to male has an uncontrolled seizure disorder. Noncompliant with Keppra reportedly. Further history from spouse at 12:27 PM who is now at the bedside. States patient has not been taking Keppra due to side effects, but unclear what side effects there were. Has seen primary care since being here in March but not neurology yet and is being referred. Plan to load with Keppra but may need a different home-going agent, will have to reassess what the side effects were when patient is no longer postictal. On recheck at 2:30 PM now much more awake and conversant. In the interim CMP and test were normal/negative save mild decrease in bicarb likely due to seizure. Patient states was noncompliant with Keppra because of migraines. Given the history of migraines and intolerance to Keppra, topiramate would seem like a good choice to me pending follow-up. Departure - Departure Disposition: Home, Self Care Clinical Impression: Seizure Condition: Good Record reviewed to determine appropriate education?: Yes Instructions: ED Seizure Recurrent Prescriptions: oxyCODONE [Roxicodone] 5 mg PO Q4-6H PRN #7 tablet PRN Reason: Pain Topiramate 50 mg PO DAILY #90 tablet Comments: I sent your prescription electronically to the [facility] in [place]. Per [facility] law you cannot drive until 6 months seizure-free or cleared by a neurologist. Continue to work with your primary care physician for neurology referral and refills. Return if worse. We started the seizure medicine at a lower dose, you are going to take 1 tablet a day, after a week increase it to 2 tablets a day, and after another week increase it to 2 tablets twice a day. If you develop significant/intolerable side effects go back down to the previous dose.
[2023-07-18] MEDS: levETIRAcetam INJ 1,000 MG in SODIUM CHLORIDE 0.9% 100ML 100 ML IV STA (12:27)
[2023-07-18] MEDS: ONDANSETRON 4 MG/2 ML VIAL IVP STA (13:20)
[2023-07-18 14:02] LABS: ALBUMIN 4.2 g/dL (3.2-5.5); ALBUMIN/GLOBULIN RATIO 1.4 (1.0-2.2); BILIRUBIN,TOTAL 0.4 mg/dL (0.2-1.0); CALCIUM 9.4 mg/dL (8.5-10.3); CREATININE 0.8 mg/dL (0.6-1.3); HCG,QUALITATIVE BLOOD NEGATIVE; POTASSIUM 4.2 mmol/L (3.5-4.5); TOTAL PROTEIN 7.2 g/dL (6.4-8.9)
[2023-07-18] MEDS: KETOROLAC 15 MG/ML VIAL IVP STA (15:55)
[2023-07-18] MEDS: HYDROmorphone 1 MG/ML CARPUJECT IVP STA (15:56)
[2023-07-18 17:38] VITALS: BP 126/77; O2SAT 95
== END 2023-07-18 17:33 | disposition home or self-care (01) ==
LOC: EDUNIT# → ED 12:07
DX: G40.909 Epilepsy, unspecified, not intractable, without status epilepticus (principal); T42.6X6A Underdosing of other antiepileptic and sedative-hypnotic drugs, initial encounter; F64.0 Transsexualism
CPT/HCPCS: 36415; 80053; 84703; 96365; 96375; 99284; J1170

== ENCOUNTER 2023-08-16 09:27 | Outpatient (CLI) | payer OTHER | END 2023-08-16 23:59 | disposition critical access hospital (66) | LOC: EMS 09:27 | DX: R56.9 Unspecified convulsions (principal) | CPT/HCPCS: A0425; A0427 ==

== ENCOUNTER 2023-08-16 09:50 | Emergency (ER) | payer OTHER ==
--- NOTE | 2023-08-16 10:00 | ED Physician Documentation ---
PD HPI SEIZURE - Stated complaint Stated Complaint: SZ - History obtained from History obtained from: Patient - History of Present Illness Timing - onset: Today Witnessed: Witnessed Number of seizures: Multiple (has had 3 today, initial 2 at home and one enroute in EMS.) Description of seizure activity: Generalized Associated symptoms: No: Headache History of seizures: Known seizure disorder Contributing factors: Changed meds (had started on new AED recently at low dose, as was not taking Keppra due to some unknown side effect. 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 : None HEENT: None Psych: None Musculoskeletal: None, Chronic back pain Derm: None - Past Surgical History Past Surgical History: No - Present Medications Home Medications: Ambulatory Orders Medication Instructions Recorded Confirmed Cetirizine [ZyrTEC] 10 mg PO DAILY 04/05/23 04/05/23 Levetiracetam [Keppra] 1,000 mg PO BID #60 tablet 04/05/23 Topiramate 50 mg PO DAILY #90 tablet 07/18/23 oxyCODONE [Roxicodone] 5 mg PO Q4-6H PRN #7 tablet 07/18/23 diazePAM [Valium] 5 mg PO BID #10 tablet 08/16/23 - Allergies Allergies/Adverse Reactions: Allergies Allergy/AdvReac Type Severity Reaction Status Date / Time No Known Drug Allergies Allergy Verified 08/16/23 10:15 - Social History Does the pt smoke?: No Smoking Status: Never smoker Does the pt drink ETOH?: No Does the pt have substance abuse?: No - Immunizations Immunizations are current?: Yes - POLST Patient has POLST: No PD ED PE NORMAL - Vitals Vital signs reviewed: Yes - General General: Well developed/nourished. No: Alert and oriented X 3 (arrives somewhat anxious and restless, able to follow direction sluggishly. Wide eyed and seems confused, c/w post ictal phase. ) - HEENT HEENT: Atraumatic, Other (tongue abrasions without bleeding. ) - Neck Neck: Supple, no meningeal sign, No adenopathy - Cardiac Cardiac: RRR, No murmur - Respiratory Respiratory: No respiratory distress, Clear bilaterally - Abdomen Abdomen: Soft, Non tender - Derm Derm: Normal color, Warm and dry - Extremities Extremities: No tenderness to palpate - Neuro Neuro: No motor deficit, No sensory deficit Results - Vitals Vitals: Vital Signs - 24 hr 08/16/23 08/16/23 08/16/23 10:44 11:14 11:30 Heart Rate 96 95 103 H Respiratory 18 18 Rate Blood Pressure 104/68 96/66 O2 Saturation 98 98 100 08/16/23 08/16/23 08/16/23 12:00 12:30 12:40 Heart Rate 80 135 H 101 H Respiratory 15 18 14 Rate Blood Pressure 109/73 144/41 H O2 Saturation 97 76 L 93 08/16/23 08/16/23 08/16/23 13:00 13:44 14:00 Heart Rate 100 96 97 Respiratory 18 20 16 Rate Blood Pressure 158/102 H 124/75 144/72 H O2 Saturation 98 99 97 08/16/23 08/16/23 08/16/23 14:30 15:00 15:30 Heart Rate 85 82 75 Respiratory 15 15 15 Rate Blood Pressure 109/70 107/64 108/76 O2 Saturation 97 93 100 08/16/23 08/16/23 08/16/23 16:00 16:30 18:00 Heart Rate 79 74 78 Respiratory 14 15 20 Rate Blood Pressure 109/72 91/73 145/68 H O2 Saturation 100 98 100 Oxygen O2 Source Room air - Labs Labs: Laboratory Tests 08/16/23 08/16/23 08/16/23 10:59 10:59 11:36 WBC 12.6 H RBC 4.48 Hgb 13.0 Hct 40.9 MCV 91.3 MCH 29.0 MCHC 31.8 L RDW 13.3 Plt Count 201 MPV 11.1 H Neut # (Auto) 11.4 H Lymph # (Auto) 0.8 L [place] # (Auto) 0.4 Eos # (Auto) 0.0 Baso # (Auto) 0.0 Absolute Nucleated RBC 0.00 Nucleated RBC % 0.0 Sodium 140 Potassium 3.8 Chloride 111 Carbon Dioxide 22 Anion Gap 7.0 BUN 8 Creatinine 0.9 Estimated GFR (MDRD) 79 L Glucose 71 L POC Whole Bld Glucose 99 Calcium 9.0 Magnesium 1.9 Total Bilirubin 0.4 AST 16 ALT 10 Alkaline Phosphatase 52 Total Protein 6.6 Albumin 4.1 Globulin 2.5 Albumin/Globulin Ratio 1.6 Lipase 10 L TSH 1.01 PD Medical Decision Making - ED course Complexity details: reviewed old records (prior decison on AED med was reasoned and was started at appropriate low dose. I would increase the dose now however. I did give dose Keppra here after seizure in ED for also protection short term as works sooner, though sounds like pt would not take it ongoing per prior ED note/discussion. ), reviewed results (basic CBC and chemistry panel are normal. Topiramate can associate with low sodium, so checked some labs. These are okay. No injury and has history of seizures long standing, so I did not see need for imaging. ), re-evaluated patient (patient did have self limted seizure lasting about 45 seconds in ED. No apparent injury. Post ictal and recovered to alert. Given Ativan IV after seizure to help cover since has had 3 now today. Previously stopped ), considered differential (seizure disorder with recurrent seizures. recently started different AED at low dose. Had seizure today x 2. Can increase the topiramate, but efffect will not be seen for few days. Can cover with short term oral benzo bid for 5 days. Did have self limited sz in ED.), d/w patient Departure - Departure Disposition: 01 Home, Self Care Clinical Impression: Recurrent seizures, Seizure disorder Condition: Stable Record reviewed to determine appropriate education?: Yes Instructions: ED Seizure Recurrent Follow-Up: CANDELARIO GODWIN PA-C [Primary Care Provider] - Prescriptions: diazePAM [Valium] 5 mg PO BID #10 tablet Comments: I would suggest increasing your topiramate to twice daily. It does take a while for that to get into to appropriate levels in your bloodstream. We can cover for seizure protection in the short-term with diazepam twice daily for the next 5 days. Stay well-hydrated. Return if needed. In try to follow-up with neurologist in the near future. I do not know if your primary care has given referrals for that. Talk with them if they have not. Forms: PCP List Discharge Date/Time: 08/16/23 18:49
[2023-08-16] MEDS: SODIUM CHLORIDE 0.9% 1,000 ML IV STA (10:48)
[2023-08-16] MEDS: DEXTROSE 10% 250 ML IV STA (10:50)
[2023-08-16] MEDS: ONDANSETRON 4 MG/2 ML VIAL IVP STA ×2 (10:51→13:52)
[2023-08-16] MEDS: KETOROLAC 15 MG/ML VIAL IVP STA ×2 (10:54→18:16)
[2023-08-16 11:06] LABS: BASOPHILS % (AUTO) 0.2 %; EOSINOPHILS % (AUTO) 0.2 %; HCT - HEMATOCRIT 40.9 % (37.0-47.0); LYMPHOCYTES # (AUTO) 0.8 10^3/uL (1.5-3.5); MEAN CORPUSCULAR HGB CONC 31.8 g/dL (32.0-36.0); MEAN CORPUSCULAR VOLUME 91.3 fL (81.0-99.0); MEAN PLATELET VOLUME 11.1 fL (7.9-10.8); MONOCYTES # (AUTO) 0.4 10^3/uL (0.0-1.0); MONOCYTES % (AUTO) 3.1 %; NEUTROPHILS # (AUTO) 11.4 10^3/uL (1.5-6.6); NEUTROPHILS % (AUTO) 90.1 %; PLT - PLATELET COUNT 201 10^3/uL (130-450); RED BLOOD COUNT 4.48 10^6/uL (4.20-5.40); RED CELL DISTRIBUTION WIDTH 13.3 % (12.0-15.0); WHITE BLOOD COUNT 12.6 x10^3/uL (4.8-10.8)
[2023-08-16 11:20] LABS: ALBUMIN 4.1 g/dL (3.2-5.5); ALBUMIN/GLOBULIN RATIO 1.6 (1.0-2.2); BILIRUBIN,TOTAL 0.4 mg/dL (0.2-1.0); CREATININE 0.9 mg/dL (0.6-1.3); MAGNESIUM 1.9 mg/dL (1.7-2.3); POTASSIUM 3.8 mmol/L (3.5-4.5); TOTAL PROTEIN 6.6 g/dL (6.4-8.9)
[2023-08-16 11:35] LABS: THYROID STIMULATING HORMONE 1.01 uIU/mL (0.34-5.60)
[2023-08-16] MEDS ORDERED: LORazepam 2 MG/ML VIAL ONE (12:27)
[2023-08-16] MEDS: LORazepam 2 MG/ML VIAL IVP STA (12:30)
[2023-08-16] MEDS: HYDROmorphone 0.5 MG/0.5 ML SYRINGE IVP STA (13:52)
[2023-08-16] MEDS: levETIRAcetam 500 MG/5 ML VIAL IVP STA (13:53)
[2023-08-16] MEDS: TOPIRAMATE 25 MG TABLET PO STA (15:51)
[2023-08-16] MEDS: ACETAMINOPHEN 500 MG TABLET PO STA (18:16)
[2023-08-16 18:26] VITALS: BP 145/68; O2SAT 100
== END 2023-08-16 18:49 | disposition home or self-care (01) ==
LOC: EDUNIT# → ED 09:50 → SUPCPDRO 09:50 → ED 18:49
DX: G40.409 Other generalized epilepsy and epileptic syndromes, not intractable, without status epilepticus (principal); Z79.899 Other long term (current) drug therapy
CPT/HCPCS: 36415; 80053; 83690; 83735; 84443; 85025; 96374; 96375; 96376; 99284; 99285; A9270; J1170; J2060; J3490

== ENCOUNTER 2023-09-01 13:40 | Emergency (ER) | payer OTHER ==
[2023-09-01 15:04] LABS: BASOPHILS % (AUTO) 0.3 %; EOSINOPHILS % (AUTO) 0.2 %; HGB - HEMOGLOBIN 13.3 g/dL (12.0-16.0); LYMPHOCYTES # (AUTO) 0.7 10^3/uL (1.5-3.5); LYMPHOCYTES % (AUTO) 5.4 %; MEAN CORPUSCULAR HGB CONC 31.7 g/dL (32.0-36.0); MEAN CORPUSCULAR VOLUME 91.5 fL (81.0-99.0); MEAN PLATELET VOLUME 11.6 fL (7.9-10.8); MONOCYTES # (AUTO) 0.3 10^3/uL (0.0-1.0); NEUTROPHILS # (AUTO) 12.2 10^3/uL (1.5-6.6); NEUTROPHILS % (AUTO) 91.8 %; PLT - PLATELET COUNT 209 10^3/uL (130-450); RED BLOOD COUNT 4.59 10^6/uL (4.20-5.40); RED CELL DISTRIBUTION WIDTH 13.2 % (12.0-15.0); WHITE BLOOD COUNT 13.3 x10^3/uL (4.8-10.8)
[2023-09-01 15:24] LABS: ALBUMIN 4.3 g/dL (3.2-5.5); ALBUMIN/GLOBULIN RATIO 1.7 (1.0-2.2); BILIRUBIN,TOTAL 0.3 mg/dL (0.2-1.0); CALCIUM 9.5 mg/dL (8.5-10.3); CREATININE 0.8 mg/dL (0.6-1.3); MAGNESIUM 1.8 mg/dL (1.7-2.3); TOTAL PROTEIN 6.9 g/dL (6.4-8.9)
[2023-09-01] MEDS ORDERED: LORazepam 2 MG/ML VIAL ONE (17:22)
[2023-09-01] MEDS: LORazepam 2 MG/ML VIAL IM STA (17:25)
[2023-09-01] MEDS: LORazepam 2 MG/ML VIAL IVP STA (17:50)
[2023-09-01] MEDS: ONDANSETRON 4 MG/2 ML VIAL IVP STA (18:18)
[2023-09-01] MEDS: SODIUM CHLORIDE 0.9% 1,000 ML IV ONE (18:18)
--- NOTE | 2023-09-01 18:44 | ED Physician Documentation ---
PD HPI SEIZURE - Stated complaint Stated Complaint: SZ/HIT HEAD - Chief complaint Chief Complaint: Neuro - Additional information Additional information: 22-year-old female transitioning to male presents emergency department for seizures. Patient has known seizure disorder unfortunately she does not tolerate Keppra at home due to migraines and has been causing her neurologist is Dr. Gleason she is currently on topiramate for her seizures and has had a total of 3 seizures today she has hit the back of her head multiple times and is worried about possible head injury. Unfortunately while waiting in the emergency department for about 3 to 4 hours patient had a recurrent seizure and was postictal. Much of the history was initially gathered by patient's spouse patient is more alert and awake now. Patient also endorses and sacrum pain after falling after her last seizure here in the emergency department. 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 : None HEENT: None Psych: None Musculoskeletal: None, Chronic back pain Derm: None - Past Surgical History Past Surgical History: No - Present Medications Home Medications: Ambulatory Orders Medication Instructions Recorded Confirmed Topiramate 50 mg PO DAILY #90 tablet 07/18/23 09/01/23 Lacosamide 100 mg PO BID 14 Days #28 tablet 09/01/23 Prazosin [Minipress] 1 mg PO DAILY 09/01/23 09/01/23 - Allergies Allergies/Adverse Reactions: Allergies Allergy/AdvReac Type Severity Reaction Status Date / Time No Known Drug Allergies Allergy Verified 09/01/23 13:54 - Social History Does the pt smoke?: No Smoking Status: Never smoker Does the pt drink ETOH?: No Does the pt have substance abuse?: No - Immunizations Immunizations are current?: Yes - POLST Patient has POLST: No PD ED PE NORMAL - Vitals Vital signs reviewed: Yes - General General: Well developed/nourished - HEENT HEENT: Atraumatic, PERRL, EOMI - Neck Neck: No bony TTP - Cardiac Cardiac: RRR, No gallop - Respiratory Respiratory: No respiratory distress, Clear bilaterally - Abdomen Abdomen: Normal bowel sounds, Soft, Non tender - Back Back: No CVA TTP, Other (sacral tenderness with palpation) - Derm Derm: Normal color, Warm and dry, No rash - Extremities Extremities: No deformity, No edema - Neuro Neuro: Alert and oriented X 3, traffic lieutenant 2-12 intact, No motor deficit, No sensory deficit, Normal speech Eye Opening: Spontaneous Motor: Localizes to Pain Verbal: Oriented GCS Score: 14 - Psych Psych: Normal mood Results - Vitals Vitals: Vital Signs - 24 hr 09/01/23 09/01/23 09/01/23 13:49 13:54 19:24 Temperature 36.5 C Heart Rate 99 96 93 Respiratory 16 16 18 Rate Blood Pressure 103/58 L 111/45 L 111/65 O2 Saturation 97 95 98 09/01/23 21:04 Temperature Heart Rate 78 Respiratory 16 Rate Blood Pressure 118/73 O2 Saturation 98 Oxygen O2 Source Room air - Labs Labs: Laboratory Tests 09/01/23 09/01/23 09/01/23 14:50 14:50 16:00 WBC 13.3 H RBC 4.59 Hgb 13.3 Hct 42.0 MCV 91.5 MCH 29.0 MCHC 31.7 L RDW 13.2 Plt Count 209 MPV 11.6 H Neut # (Auto) 12.2 H Lymph # (Auto) 0.7 L [place] # (Auto) 0.3 Eos # (Auto) 0.0 Baso # (Auto) 0.0 Absolute Nucleated RBC 0.00 Nucleated RBC % 0.0 Sodium 135 Potassium 4.0 Chloride 105 Carbon Dioxide 21 Anion Gap 9.0 BUN 10 Creatinine 0.8 Estimated GFR (MDRD) 91 Glucose 109 H Calcium 9.5 Magnesium 1.8 Total Bilirubin 0.3 AST 12 ALT 7 L Alkaline Phosphatase 54 Total Protein 6.9 Albumin 4.3 Globulin 2.6 Albumin/Globulin Ratio 1.7 Lipase 10 L Serum HCG, Qual NEGATIVE - Rads (name of study) Cervical spine CT without Relevant Findings:: Final report received, EMP independent interpretation of test, Other (No subluxation or Bony abnormalities) Head CT without Relevant Findings:: Final report received, EMP independent interpretation of test, Other (No acute intracranial abnormalities or findings) Sacrum coccyx x-rays Relevant Findings:: Final report received, EMP independent interpretation of t est (No acute bony abnormalities or findings.), Other PD Medical Decision Making - ED course ED course: 22-year-old female to male presents emergency department for seizures. Head CT was complete did not reveal any acute intracranial abnormalities or hemorrhages no new masses. CT cervical was also complete which did not feel any subluxation or bony abnormalities or findings. Patient was complaining of lower back, sacral pain after her second fall during seizure and this was also found to be negative for any acute bony abnormalities or findings. Tylenol and oxycodone was given for this pain and she did report alleviation in pain. Labs are also complete in the emergency department looking for other sort of abnormalities that could be contributing to patient's seizures she does have very mild leukocytosis, 13.3 no anemia no electrolyte abnormalities. Unfortunately patient is unable to tolerate Keppra due to migraines so she was started on topiramate and this is most likely not at therapeutic level Patient had 1 myoclonic seizure here in the emergency department that was witnessed by myself she did get a total of 2 mg IV Ativan afterwards as we are having a hard time with her postictal state and her allowing us to do an IV line. Since then she has been doing well. He washer for several hours in the emergency department after her second seizure she returned back to baseline neurologically. I did reach out to patient's neurologist Dr. Gleason at [facility] and he advised starting patient on lacosamide 100 mg twice daily. Unfortunately we do not have this medication here in the emergency department I sent this to patient's preferred pharmacy and told her to pear picker this medication first thing in the morning as soon as she wakes up. Patient as well as patient's spouse understand the importance of this. Strict ER return precautions given she is told that she needs to have lacosamide trough drawn in about a week and to call Dr. Horne's office on Sunday and he will place that order. At this point in time believe that patient is safe for discharge all questions answered Departure - Departure Disposition: Home, Self Care Clinical Impression: Seizure Instructions: ED Seizure Recurrent Prescriptions: Lacosamide 100 mg PO BID 14 Days #28 tablet Comments: Thank you for trusting us with your care. We have completed a head CT as well as a cervical CT and x-rays of your sacrum we are not seeing any acute abnormalities or findings at this point time which could be causing your seizures. I spoke with your neurologist Dr. Gleason with [facility] he is recommending starting you on a medication called lacosamide you will take 100 mg twice a day starting first thing tomorrow morning. Please set an alarm to wake up as soon as the pharmacy opens you can start this medication right away to prevent from having another seizure. You will need to have your trough level checked in about a week for your lacosamide and you need to call Dr. Gleason's office on Sunday to get these orders he is aware that you will be calling for these orders., Please do not hesitate to report back to the emergency department for any recurrent seizures or any other concerning neurological symptoms. Forms: PCP List Discharge Date/Time: 09/01/23 21:05
[2023-09-01 18:47] LABS: HCG,QUALITATIVE BLOOD NEGATIVE
[2023-09-01] MEDS: oxyCODONE 5 MG TABLET PO STA (19:22)
--- NOTE | 2023-09-01 19:22 | XRAY Report ---
PROCEDURE: Sacrum/Coccyx INDICATIONS: sacral pain after fall TECHNIQUE: 2 views of the sacrum and coccyx acquired. COMPARISON: X-ray lumbar spine and hip 07/11/2022 FINDINGS: Bones: No fractures or dislocations. No suspicious bony lesions. Soft tissues: Visualized bowel gas pattern is normal. No suspicious soft tissue densities. IMPRESSION: No visualized acute fracture or dislocation. However, occult injury cannot be excluded. Recommend megan rt interval imaging follow-up in 7-10 days as clinically indicated for additional evaluation. Reviewed by: Clarisa Hicks MD on 09/01/2023 7:21 PM PDT Approved by: Clarisa Hicks MD on 09/01/2023 7:21 PM PDT Station ID: [id number]
--- NOTE | 2023-09-01 19:23 | CT Report ---
PROCEDURE: Head WO INDICATIONS: head injury, seizures, aMS TECHNIQUE: Noncontrast 4.5 mm thick angled axial sections acquired from the foramen magnum to the vertex. For r adiation dose reduction, the following was used: automated exposure control, adjustment of mA and/or kV according to patient size. COMPARISON: CT head 04/05/2023 FINDINGS: Image quality: Excellent. CSF spaces: Basal cisterns are patent. No extra-axial fluid collections. Ventricles are normal in size and shape. Brain: No midline shift. No intracranial masses or hemorrhage. Arzola-white matter interface is norm al. Skull and face: Calvarium and visualized facial bones are intact, without suspicious lesions. Sinuses: Visualized sinuses and mastoids are clear. IMPRESSION: No acute intracranial pathology. Reviewed by: Clarisa Hicks MD on 09/01/2023 7:21 PM PDT Approved by: Clarisa Hicks MD on 09/01/2023 7:21 PM PDT Station ID: [id number]
--- NOTE | 2023-09-01 19:24 | CT Report ---
PROCEDURE: Cervical Spine WO INDICATIONS: GLF TECHNIQUE: Noncontrast 3 mm thick sections acquired from the skull base to the T4 level. Sagittal and coronal r eformats were then constructed. For radiation dose reduction, the following was used: automated exp osure control, adjustment of mA and/or kV according to patient size. COMPARISON: CT head 09/01/2023, 04/05/2023 FINDINGS: Image quality: Excellent. Bones: No fractures or dislocations. Visualized superior ribs are intact. Soft tissues: Prevertebral soft tissues are normal in thickness. No paravertebral hematomas. No ap ical pneumothoraces. IMPRESSION: No visualized fracture. Reviewed by: Clarisa Hicks MD on 09/01/2023 7:23 PM PDT Approved by: Clarisa Hicks MD on 09/01/2023 7:23 PM PDT Station ID: [id number]
[2023-09-01 19:32] VITALS: O2SAT 98
[2023-09-01 21:05] VITALS: BP 118/73
== END 2023-09-01 21:05 | disposition home or self-care (01) ==
LOC: ED 13:40
DX: R56.9 Unspecified convulsions (principal)
CPT/HCPCS: 36415; 70450; 72125; 72220; 80053; 83690; 83735; 84703; 85025; 96372; 96374; 99284; A9270; J2060

== ENCOUNTER 2023-10-17 21:47 | Outpatient (CLI) | payer OTHER | END 2023-10-17 23:59 | disposition critical access hospital (66) | LOC: EMS 21:47 | PROVIDERS: ATTEND Emergency Medicine | DX: R41.82 Altered mental status, unspecified (principal) | CPT/HCPCS: A0425; A0429 ==

== ENCOUNTER 2023-10-17 22:14 | Emergency (ER) | payer OTHER ==
--- NOTE | 2023-10-17 22:21 | ED Physician Documentation ---
History of Present Illness - Stated complaint Stated Complaint: AMS - History obtained from History obtained from: EMS - Additonal information Additional information: 23-year-old woman presents by EMS for altered mental status. She has a history of seizure disorder in childhood with recurrence about 6 months ago. She is female transitioning to male who lives with her and based housing. She has a history of cannabis use and alcohol use but reportedly has quit alcohol since she started having seizures. She was initially on Keppra for the seizures but stopped it due to migraine headaches, then was started on Topamax and laco samide subsequently and sees Dr. Gleason in [place]. All of the history is from EMS because she is not talking but reportedly about 2 hours ago became agitated and nonverbal. Reportedly was normal prior to that. I am told that the is on the way but not immediately available on arrival. Prehospital vital signs and blood sugar were unremarkable. at bedside as of 10:31 PM: Specific history from . Patient has been feeling ill for a couple of days with stomach upset and today was vomiting. had stepped out and returned to find her sleeping and unresponsive and now more like what were seeing on examination now. Patient has been does not think patient has used any cannabis or other illicit substances today and no alcohol in many months. 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 HEENT: None Psych: None Musculoskeletal: None, Chronic back pain Derm: None - Past Surgical History Past Surgical History: No - Present Medications Home Medications: Ambulatory Orders Medication Instructions Recorded Confirmed Topiramate 50 mg PO DAILY #90 tablet 07/18/23 10/17/23 Lacosamide 100 mg PO BID 14 Days #28 tablet 09/01/23 10/17/23 Prazosin [Minipress] 1 mg PO DAILY 09/01/23 10/17/23 - Allergies Allergies/Adverse Reactions: Allergies Allergy/AdvReac Type Severity Reaction Status Date / Time No Known Drug Allergies Allergy Verified 10/17/23 22:23 - Social History Does the pt smoke?: No Smoking Status: Never smoker Does the pt drink ETOH?: No Does the pt have substance abuse?: No - Immunizations Immunizations are current?: Yes - POLST Patient has POLST: No PD ED PE NORMAL - Vitals Vital signs reviewed: Yes - General General: Other (She seems alert and she will make eye contact but she is kind of writhing around in bed. She does withdraw to painful stimulus and grimace in all 4 extremities.) - HEENT HEENT: PERRL, EOMI - Neck Neck: Supple, no meningeal sign, No bony TTP - Cardiac Cardiac: RRR, No murmur - Respiratory Respiratory: No respiratory distress, Clear bilaterally - Abdomen Abdomen: Non tender - Extremities Extremities: No deformity, No tenderness to palpate - Neuro Eye Opening: Spontaneous Motor: Withdraws to Pain Verbal: None GCS Score: 9 Results - Vitals Vitals: Vital Signs - 24 hr 10/17/23 22:19 Temperature 36.9 C Heart Rate 89 Respiratory 210 H Rate Blood Pressure 110/79 O2 Saturation 100 Oxygen O2 Source Room air PD Medical Decision Making - ED course ED course: 23-year-old with seizure disorder transitioning to male gender presents with d elirium and agitation and nonverbal. The cause of which could be psychiatric or medical. Did need chemical restraint to allow initial workup with ketamine to obtain urine and blood and CAT scan of the head. Care to Dr. Caballero at 11 PM shift change, at this time there are no diagnostic results. Departure - Departure Clinical Impression: Delirium, Agitation
[2023-10-17] MEDS: KETAMINE 500 MG/10 ML VIAL IM STA (22:44)
--- NOTE | 2023-10-17 22:59 | ED Physician Documentation ---
Restraint [id number] - Immediate Situation Face to Face Evaluation Date: 10/17/23 Face to Face Evaluation Time: 22:59 Restraint Classification: Violent, chemical w/ physical hold - Patient's Reaction & Behaviors Safety: Unable to Follow Commands Harm: Potential harm to self Physical: Aggressive behavior - Behavioral Condition Attitude: Guarded Behavior: Agitated Orientation: Non-responsive Mood: Labile - Evaluation Pertinent History/Illicit Drugs/Medications/Results: Unknown at this time what is causing her delirium, could be psychiatric or medical. Needed to restraint to facilitate medical workup to elucidate cause.
[2023-10-17 23:16] LABS: BASOPHILS % (AUTO) 0.1 %; HCT - HEMATOCRIT 42.2 % (37.0-47.0); HGB - HEMOGLOBIN 13.7 g/dL (12.0-16.0); LYMPHOCYTES # (AUTO) 0.6 10^3/uL (1.5-3.5); LYMPHOCYTES % (AUTO) 3.4 %; MEAN CORPUSCULAR HEMOGLOBIN 29.7 pg (27.0-31.0); MEAN CORPUSCULAR HGB CONC 32.5 g/dL (32.0-36.0); MEAN CORPUSCULAR VOLUME 91.5 fL (81.0-99.0); MEAN PLATELET VOLUME 12.5 fL (7.9-10.8); MONOCYTES # (AUTO) 0.4 10^3/uL (0.0-1.0); MONOCYTES % (AUTO) 2.3 %; NEUTROPHILS # (AUTO) 17.5 10^3/uL (1.5-6.6); NEUTROPHILS % (AUTO) 93.8 %; PLT - PLATELET COUNT 245 10^3/uL (130-450); RED BLOOD COUNT 4.61 10^6/uL (4.20-5.40); RED CELL DISTRIBUTION WIDTH 12.8 % (12.0-15.0); WHITE BLOOD COUNT 18.6 x10^3/uL (4.8-10.8)
[2023-10-17 23:17] LABS: BILIRUBIN,URINE NEGATIVE (NEGATIVE); GLUCOSE, URINE (UA) NEGATIVE (NEGATIVE); KETONES,URINE (UA) NEGATIVE (NEGATIVE); LEUKOCYTE ESTERASE, URINE NEGATIVE (NEGATIVE); NITRITE,URINE NEGATIVE (NEGATIVE); OCCULT BLOOD,URINE NEGATIVE (NEGATIVE); PROTEIN,URINE NEGATIVE (NEGATIVE); UROBILINOGEN,URINE 0.2 (NORMAL) E.U./dL (NORMAL)
[2023-10-17 23:20] LABS: CLARITY,URINE HAZY (CLEAR); HCG UR QUAL NEGATIVE
[2023-10-17 23:25] LABS: AMORPHOUS SEDIMENT,UR Moderate /LPF; BACTERIA,URINE Rare /HPF (None Seen); RBC,URINE 0-5 /HPF (0-5); SQUAMOUS EPITHELIAL CELL,UR FEW Squamous (<= Few); WBC,URINE 0-3 /HPF (0-5)
[2023-10-17 23:27] LABS: AMPHETAMINE SCREEN,URINE NEGATIVE (NEGATIVE); COCAINE SCREEN URINE NEGATIVE (NEGATIVE); METHAMPHETAMINES SCREEN, URINE NEGATIVE (NEGATIVE); OPIATE SCREEN, URINE NEGATIVE (NEGATIVE); THC CANNABINOID SCREEN, URINE POSITIVE (NEGATIVE)
[2023-10-17 23:28] LABS: BARBITURATE SCREEN,UR NEGATIVE (NEGATIVE); BENZODIAZEPINES SCREEN, URINE NEGATIVE (NEGATIVE); BUPRENORPHINE SCREEN, URINE NEGATIVE (NEGATIVE); METHADONE SCREEN, URINE NEGATIVE (NEGATIVE); OXYCODONE SCREEN, URINE NEGATIVE (NEGATIVE); TRICYCLIC ANTIDEPRESSANT,URINE NEGATIVE (NEGATIVE)
--- NOTE | 2023-10-17 23:37 | CT Report ---
PROCEDURE: Head WO INDICATIONS: ams TECHNIQUE: Noncontrast 4.5 mm thick angled axial sections acquired from the foramen magnum to the vertex. For r adiation dose reduction, the following was used: automated exposure control, adjustment of mA and/or kV according to patient size. COMPARISON: 04/05/2023, 09/01/2023. FINDINGS: Image quality: Excellent. CSF spaces: Basal cisterns are patent. No extra-axial fluid collections. Ventricles are normal in size and shape. Brain: No midline shift. No intracranial masses or hemorrhage. Arzola-white matter interface is norm al. Skull and face: Calvarium and visualized facial bones are intact, without suspicious lesions. Sinuses: Visualized sinuses and mastoids are clear. IMPRESSION: No acute intracranial pathology. No significant changes from previous study. Consider MRI of brain fo r further evaluation if clinically indicated. Reviewed by: Allen Alcala MD on 10/17/2023 11:35 PM PDT Approved by: Allen Alcala MD on 10/17/2023 11:35 PM PDT Station ID: [id number]
[2023-10-17 23:39] LABS: ACETAMINOPHEN 0.1 ug/mL; CK- CREATINE KINASE 186 IU/L (30-223); ETOH - ETHANOL < 10.0 mg/dL; LIPASE < 10 U/L (11-82); MAGNESIUM 1.9 mg/dL (1.7-2.3)
[2023-10-17 23:43] LABS: THYROID STIMULATING HORMONE 0.87 uIU/mL (0.34-5.60)
[2023-10-17 23:47] LABS: ALBUMIN 4.5 g/dL (3.2-5.5); ALBUMIN/GLOBULIN RATIO 1.4 (1.0-2.2); ALKALINE PHOSPHATASE 52 IU/L (42-121); ALT ALANINE AMINOTRANSFERASE 11 IU/L (10-60); AST ASPARTATE AMINOTRANSFERASE 21 IU/L (10-42); BILIRUBIN,TOTAL 0.5 mg/dL (0.2-1.0); BUN - BLOOD UREA NITROGEN 14 mg/dL (6-20); CALCIUM 9.5 mg/dL (8.5-10.3); CARBON DIOXIDE - CO2 19 mmol/L (21-32); CHLORIDE 108 mmol/L (101-111); CREATININE 1.1 mg/dL (0.6-1.3); GFR - MDRD 62 (>89); GLUCOSE 122 mg/dL (74-104); POTASSIUM 4.3 mmol/L (3.5-4.5); SALICYLATE < 1.5 mg/dL; SODIUM 138 mmol/L (135-145); TOTAL PROTEIN 7.8 g/dL (6.4-8.9)
[2023-10-18] MEDS: KETAMINE 500 MG/10 ML VIAL IM STA (05:43)
--- NOTE | 2023-10-18 06:09 | ED Physician Documentation ---
Restraint [id number] - Immediate Situation Face to Face Evaluation Date: 10/18/23 Face to Face Evaluation Time: 06:08 Restraint Classification: Violent, chemical w/ physical hold - Patient's Reaction & Behaviors Safety: Unable to Follow Commands Other: Attempting removal of medically necessary device(s) - Behavioral Condition Attitude: Indifferent Behavior: Uncooperative Orientation: Non-responsive (no verbal responses) Mood: Other (nonverbal and odd behavior; unable to assess mood) - Evaluation Pertinent History/Illicit Drugs/Medications/Results: Unknown at this time what is causing her delirium, could be psychiatric or medical. Needed to restraint to facilitate medical workup to elucidate cause. - Plan Need to Initiate/Renew Violent or Chemical Restraint: chemical restraint with hold; renewal n/a
--- NOTE | 2023-10-18 06:24 | ED Physician Documentation ---
Restraint [id number] - Immediate Situation Face to Face Evaluation Date: 10/18/23 Face to Face Evaluation Time: 06:21 Restraint Classification: Violent, physical - Patient's Reaction & Behaviors Safety: Unable to Follow Commands Other: Disruption of therapy - Behavioral Condition Attitude: Indifferent Behavior: Uncooperative Orientation: Non-responsive Mood: Other (unable to assess mood (nonverbal)) - Evaluation Pertinent History/Illicit Drugs/Medications/Results: Unknown at this time what is causing her delirium, could be psychiatric or medical. Needed to restraint to facilitate medical workup to elucidate cause. - Plan Need to Initiate/Renew Violent or Chemical Restraint: discontinuation depends on patient's ability to demonstrate and/or verbalize ability to keep monitoring devices (such as pulse ox) and IV in place (or AAOx3 and mental capacity to willingly refuse medical monitoring/treatment)
[2023-10-18 06:42] LABS: HCT - HEMATOCRIT 41.8 % (37.0-47.0); HGB - HEMOGLOBIN 13.4 g/dL (12.0-16.0); LYMPHOCYTES % (AUTO) 9.9 %; MEAN CORPUSCULAR HEMOGLOBIN 28.8 pg (27.0-31.0); MEAN CORPUSCULAR HGB CONC 32.1 g/dL (32.0-36.0); MEAN CORPUSCULAR VOLUME 89.9 fL (81.0-99.0); MEAN PLATELET VOLUME 12.2 fL (7.9-10.8); NEUTROPHILS % (AUTO) 82.2 %; PLT - PLATELET COUNT 228 10^3/uL (130-450); RED BLOOD COUNT 4.65 10^6/uL (4.20-5.40); RED CELL DISTRIBUTION WIDTH 12.8 % (12.0-15.0)
[2023-10-18 06:43] LABS: BASOPHILS % (AUTO) 0.2 %; EOSINOPHILS % (AUTO) 0.1 %; LYMPHOCYTES # (AUTO) 1.9 10^3/uL (1.5-3.5); MONOCYTES # (AUTO) 1.4 10^3/uL (0.0-1.0); MONOCYTES % (AUTO) 7.1 %; NEUTROPHILS # (AUTO) 15.6 10^3/uL (1.5-6.6)
[2023-10-18] MEDS: PROPOFOL 200 MG/20 ML VIAL IVP STA (06:59)
[2023-10-18] MEDS ORDERED: iohexoL-300 100 ML VIAL ONE (07:15)
--- NOTE | 2023-10-18 07:45 | CT Report ---
PROCEDURE: Angio Head/Neck INDICATIONS: AMS TECHNIQUE: After the administration of intravenous contrast, 1 mm thick sections acquired from the aortic arch t hrough the [place]. 3-dimensional vgcactn-cabpqkzdw-yueoypclul (MIP) and/or volume renderin g reformats were acquired of the central intracranial vasculature and neck separately. For radiation dose reduction, the following was used: automated exposure control, adjustment of mA and/or kV acco rding to patient size. CONTRAST: Omni 300 80ml COMPARISON: None. FINDINGS: Image quality: Diagnostic. HEAD CT: Please see separately dictated CT head report of 10/18/[address] ANGIOGRAPHY: Anterior circulation: Intracranial internal carotid arteries are normal in size and flow. The flow within the paired anterior cerebral arteries is normal and symmetric. The flow within the middle cer ebral arteries is normal and symmetric. The anterior communicating artery is seen. No aneurysms are seen. Posterior circulation: Vertebral arteries are nearly codominant. Visualized portions of the vertebra l arteries demonstrate normal caliber, and join to form a normal appearing basilar artery. Flow with in the posterior cerebral arteries is normal and symmetric. No aneurysms are seen. NECK CT ANGIOGRAPHY: Carotid system: The great vessels demonstrate a conventional anatomy as they arise from the aortic a rch. The origins of the common carotid arteries appear patent. The common carotid arteries demonstr ate normal caliber and courses. The bifurcation regions are both widely patent. The internal caroti d arteries demonstrate normal calibers and courses. Posterior circulation: The origins of the vertebral arteries both appear widely patent. The more vivar perior extracranial portions of both vertebral arteries also demonstrate normal courses and calibers. They join to form a normal appearing basilar artery. Soft tissues: Visualized neck soft tissues demonstrate no suspicious abnormalities. Bones: No suspicious bony lesions. Visualized cervical spine appears normally aligned. IMPRESSION: No significant intracranial arterial abnormality is seen. No significant abnormality is seen within the arteries of the neck. The estimate of stenosis included in the report of the imaging study was calculated using the NASCET method Reviewed by: Clarisa Hicks MD on 10/18/2023 7:44 AM PDT Approved by: Clarisa Hicks MD on 10/18/2023 7:44 AM PDT Station ID: [id number]
--- NOTE | 2023-10-18 08:10 | CT Report ---
PROCEDURE: Head WO INDICATIONS: AMS TECHNIQUE: Noncontrast 4.5 mm thick angled axial sections acquired from the foramen magnum to the vertex. For r adiation dose reduction, the following was used: automated exposure control, adjustment of mA and/or kV according to patient size. COMPARISON: 10/17/2023. FINDINGS: Image quality: Excellent. CSF spaces: Basal cisterns are patent. No extra-axial fluid collections. Ventricles are normal in size and shape. Brain: No midline shift. No intracranial masses or hemorrhage. Arzola-white matter interface is norm al. Question mild edematous change in the posterior cerebral symmetrically. Reference axial image 12 of series 3. This is not definite. Skull and face: Calvarium and visualized facial bones are intact, without suspicious lesions. Sinuses: Visualized sinuses and mastoids are clear. IMPRESSION: Question PRES syndrome (posterior reversible encephalopathy syndrome). This is not definite. Recommend brain MRI with and without contrast. Above discussed with Dr. Garcia at the time of dictation. Reviewed by: Blake Navas MD on 10/18/2023 8:09 AM PDT Approved by: Blake Navas MD on 10/18/2023 8:09 AM PDT Station ID: [id number]
[2023-10-18] MEDS: iohexoL-300 100 ML VIAL IVP ONE (08:18)
[2023-10-18] MEDS: SODIUM CHLORIDE 0.9% 1,000 ML IV STA (08:25)
[2023-10-18] MEDS: LORazepam 2 MG/ML VIAL IVP STA ×2 (08:25→08:58)
[2023-10-18] MEDS: DROPERIDOL 5 MG/2 ML VIAL IVP STA (08:25)
--- NOTE | 2023-10-18 08:28 | ED Physician Documentation ---
ED Addendum - Addendum Addendum: 10/18/23 08:24 The patient had been laying on the cart in has a very wide-eyed looking around stare when asked questions. She does follow direction somewhat. She did have CT scan done. I talked with the radiologist to suggested MRI. There was some mild findings that could be suggestive of PRL S an MRI would be more definitive. I researched up-to-date for potential triggers or associated etiologies and none of them would fit for the patient with the more common being hypertensive emergency, eclampsia, autoimmune diseases and immune modulating medications. I looked at this in particular because the patient is very restless and not holding still very well and I feel an MRI would require a high degree of sedation which would presumably need intubation for her to hold still for that. At this point we will hold on that for now given the low probability. This may still be warranted at some point. The patient did get up out of bed and was nauseated and threw up. We offered an emesis bag and she did aim her emesis towards it though did not reach for it herself. She then was sitting on the bed and wet herself. She still was not making verbal responses. Vitals most recent were still good and no fever. At this point consensus opinion on change of shift discussion was the patient most likely needs a higher level of care to include neurology. This would also provide a better setting if MRI were to be considered that it was a more accessible and not in a trailer as the patient would require higher level of evaluation and monitoring. We will be looking for other facilities for transfer. I did order the patient some lorazepam and Inapsine for the restlessness and nausea and vomiting. 10/18/23 14:07 I had talked with neurology at [facility] who said it was appropriate to transfer for further investigation. They were in accord with MRI of possible. Suggested checking ammonia level. Otherwise continue usual seizure medicines if possible. We did have the topiramate. We do not have her other seizure medicine here. She has been more relaxed after the most recent lorazepam. She was able to get the MRI brain. This was read as essentially normal so rules out the CT ES and also would likely rule out herpetic encephalitis or other conditions like that. Still not clear the cause of her altered mentation. I did talk with Dr. Molina the hospitalist. At this point we are just waiting on bed confirmation and we will transfer the patient. The transfer center said they did actually have beds available so it should not be long.
--- NOTE | 2023-10-18 08:49 | ED Physician Documentation ---
ED Addendum - Addendum Addendum: 10/18/23 08:45 I received signout/turnover of care on this patient from Dr. Tellez; please see his note for complete H&P. In brief, patient presents with altered mental status. The extent of patient's altered mentation precludes any HPI/ROS from patient; HPI strictly provided by patient's (who is in ED at patient's bedside). Patient's says that the patient has been experiencing nausea and vomiting over the past few days. No known fevers at home. Patient has not been c/o headache as far as is aware. Patient's past medical history includes seizure disorder; patient's says that the patient has not missed any doses of their antiseizure medications (Topamax, lacosamide). Per my discussion with the patient's , it sounds like patient has not yet had an EEG performed; however, the patient does have a neurologist (Dr. Mono De Leon). Prior to turnover of care, patient was given IM ketamine to facilitate workup. Test results were pending at the time of turnover of care. Unremarkable non-contrast CTH. Leukocytosis noted (WBC 18.6), but otherwise unremarkable results on the remainder of the CBC as well as ER abdominal panel. TSH is normal. Unremarkable urinalysis, urine hCG negative. UDS positive for canabis but o/w negative. Undetectable ASA, acetaminophen, ethanol levels. A few hours into my shift, I was alerted by ED RN that the patient was awake and walking around in the room. Immediately checked on the patient and found them standing at the bedside talking to . Unfortunately, I was then made aware that the patient had just urinated in the corner of the room. Furthermore, the patient is not following commands and is entirely nonverbal. Initially, the patient was able to gradually be coaxed back into the bed to lie on the stretcher. However, over the ensuing few hours, the patient became increasingly restless. On multiple reexaminations, continue to find that the patient was awake, alert, but with very confused expression, not following commands including simple commands. They continued to be nonverbal. My questions were invariably met with patient looking confused, then looking to the , then glancing around the room. or given that the patient's mentation is not improving despite several hours of ED observation, further workup can be undertaken in the inpatient setting. I consulted sound telehealth; understandably, he expresses risk reservation regarding admitting this patient to [facility] given that there are no neurologic services available nor neurologic testing (specifically EEG). I attempted to contact patient's neurologist (Dr. Mono de leon). Unfortunately, he is not currently on-call. Furthermore, there are no beds available at [facility]. I then was put in touch with the design transferrer for [facility]. They do not have any beds available and have a long list of patients in the emergency department waiting for admission. However, I was then put in touch with the on-call neurologist for [facility] (Dr. Gonzalez). She recommends repeat CT head as well as undertaking CTA of the head. We did not discuss CTA of the neck specifically, but I also ordered this test as well. Lumbar puncture was discussed; Dr. Gonzalez says LP is worthy of consideration. As I had just completed the conversation with Dr. Gonzalez, I was made aware by the ED RN that the patient was again out of bed, wandering around the room and repeatedly removing pulse oximeter. The patient removed their IV. I reevaluated the patient to find them looking through the trash can just outside of their ED room. Once again, they are nonverbal and not following commands. The patient then wandered over to another ED bed and lay down in it. Despite repeat attempts by myself as well as ED nurses and the patient's to coax the patient to stay on their bed and not remove monitoring devices (pulse oximeter), the patient continued to fidget, get up off the stretcher, wander around the room. This behavior rapidly escalated requiring a repeat chemical sedation (ketamine IM). Unfortunately, the ketamine did not have any significant effect on this behavior albeit less frequent. However, sedation was not nearly adequate for lumbar puncture. Soft restraints were then placed on the upper extremities (nonviolent) to prevent them from removing new IV placed by ED RN. I then titrated IV propofol to desired effect of sedation so that I could perform lumbar puncture. Unfortunately, despite multiple attempts, and despite adequate sedation, I was unable to obtain CSF. The patient became increasingly agitated as the narrow window of propofol effect wore off and thus efforts were abandoned further attempts at LP. At the end of my shift, the patient undergoing CTH/CTA head and neck. Care of this patient is turned over to the oncoming ED physician (Dr. Garcia). Procedures - Procedural sedation Sedation prep: PE performed, ASA 2 - mild disease, IV O2 monitor, RT present Sedation Medications: propofol (given total of 160mg IV propofol in 20-30 mg doses (30, 20, 20, 30, 30, 30).) Mallampati classification: II Patient status during sedation: Responds to tactile, Vitals remained stable, Maintained airway Sedation recovery: Recovered uneventfully, Other (recovered from effects of propofol but patient did not return to baseline (was not at baseline mental status prior to propofol)) Time in sedation (Minutes): 20
[2023-10-18 08:57] LABS: B. PARAPERTUSSIS- RESP PCR PAN NOT DETECTED; B. PERTUSSIS- RESP PCR PANEL NOT DETECTED; C. PNEUMONIAE- RESP PCR PANEL NOT DETECTED; CORONAVIRUS 229E-RESP PCR NOT DETECTED; CORONAVIRUS HKU1-RESP PCR NOT DETECTED; CORONAVIRUS NL63-RESP PCR NOT DETECTED; CORONAVIRUS OC43-RESP PCR NOT DETECTED; HUMAN METAPNEUMOVIRUS NOT DETECTED; INFLUENZA A- RESP PCR PANEL NOT DETECTED; INFLUENZA B - RESP PCR PANEL NOT DETECTED; M. PNEUMONIAE- RESP PCR PANEL NOT DETECTED; PARAINFLUENZA VIRUS 1 NOT DETECTED; PARAINFLUENZA VIRUS 2 NOT DETECTED; PARAINFLUENZA VIRUS 3 NOT DETECTED; PARAINFLUENZA VIRUS 4 NOT DETECTED; RHINOVIRUS/ENTEROVIRUS NOT DETECTED; RSV- RESP PCR PANEL NOT DETECTED; SARS-CoV-2 -RESP PCR PANEL NOT DETECTED
[2023-10-18] MEDS: diphenhydrAMINE INJ 50 MG/ML VIAL IVP STA (08:57)
--- NOTE | 2023-10-18 11:07 | PHARMACY PROGRESS NOTE ---
- Best Possible Medication History Admit Date and Time: Processed by: Pharmacy Medications reviewed in ED?: Yes Medication History completed: Yes Patient Interview: Pt unable to participate Secondary Source(s): Insurance records As the person ultimately responsible for medication therapy, providers are able to order a medication from an existing home medication list in [facility] via the "Reconcile Routine" prior to Confirmation of that medication by support manager. Such practice is discouraged except when the physician, in their clinical judgment, deems that a medical need exists for a medication without regard to previous use.
--- NOTE | 2023-10-18 12:36 | MRI Report ---
PROCEDURE: Brain WO INDICATIONS: AMS, confused TECHNIQUE: Noncontrast axial T1 spin echo, axial T2 fast spin echo, sagittal and axial FLAIR, coronal T2 fast sp in echo, axial gradient echo, axial diffusion and ADC through the brain. COMPARISON: CT had without contrast dated 10/18/2023.. FINDINGS: Image quality: Excellent. CSF Spaces: Basal cisterns are patent. No extra-axial fluid collections. Ventricles are normal in size and shape. Brain: No intracranial masses or hemorrhage. Arzola/white matter interface is normal. Brainstem appe ars normal. Diffusion-weighted images demonstrate no acute ischemic insult. No chronic ischemic ins ults. Normal intravascular flow voids are present. There is no posterior cerebral edematous change. No findings support a diagnosis of posterior reversible encephalopathy syndrome. Skull and face: Calvarium has normal marrow signal. Orbits appear normal. Sinuses: Sinuses and mastoids are clear. IMPRESSION: 1. Unremarkable brain MRI. Normal appearing brain parenchyma. No acute intracranial process. Reviewed by: Blake Navas MD on 10/18/2023 12:35 PM PDT Approved by: Blake Navas MD on 10/18/2023 12:35 PM PDT Station ID: [id number]
[2023-10-18 13:29] LABS: CALCIUM 9.3 mg/dL (8.5-10.3); CREATININE 0.8 mg/dL (0.6-1.3)
[2023-10-18] MEDS: TOPIRAMATE 25 MG TABLET PO SCH (15:37)
--- NOTE | 2023-10-18 16:00 | ED Physician Documentation ---
ED Addendum - Addendum Addendum: 10/18/23 15:59 I took over care again at 3 PM shift change [address] Garcia. She was pending transfer to [place] for neurologic evaluation and consultation which is appropriate given the unclear nature of her current illness. At this time she is actually woken up and is talking. She still little despondent as far as affect. She wanted to go home but I still encouraged transfer down to [place] given the unclear nature of what has happened over the last 24 hours which could be medical, toxicologic, or psychiatric. After discussion with the the patient is agreeable to transfer.
[2023-10-18 16:04] VITALS: BP 125/66; O2SAT 98
== END 2023-10-18 16:00 | disposition short-term general hospital (02) ==
LOC: EDUNIT# → ED 22:14
DX: R41.0 Disorientation, unspecified (principal); R45.1 Restlessness and agitation; R32 Unspecified urinary incontinence; R11.2 Nausea with vomiting, unspecified; G40.909 Epilepsy, unspecified, not intractable, without status epilepticus; Z75.1 Person awaiting admission to adequate facility elsewhere
CPT/HCPCS: 36415; 62270; 70450; 70496; 70498; 70551; 80048; 80053; 80143; 80179; 80306; 81001; 81025; 82077; 82140; 82550; 83605; 83690; 83735; 84443; 85025; 87633; 96372; 96374; 96375; 99152; 99284; 99285; J1200; J2060; Q9967; 81003; 87086

== ENCOUNTER 2023-11-11 10:44 | Outpatient (CLI) | payer OTHER | END 2023-11-11 23:59 | disposition EMS.NT | LOC: EMS 10:44 | DX: R56.9 Unspecified convulsions (principal); F41.9 Anxiety disorder, unspecified ==

== ENCOUNTER 2023-12-25 10:04 | Emergency (ER) | payer OTHER ==
[2023-12-25 10:20] VITALS: BP 110/64; O2SAT 100
[2023-12-25 11:21] LABS: B. PARAPERTUSSIS- RESP PCR PAN NOT DETECTED; B. PERTUSSIS- RESP PCR PANEL NOT DETECTED; C. PNEUMONIAE- RESP PCR PANEL NOT DETECTED; CORONAVIRUS 229E-RESP PCR NOT DETECTED; CORONAVIRUS HKU1-RESP PCR NOT DETECTED; CORONAVIRUS NL63-RESP PCR NOT DETECTED; CORONAVIRUS OC43-RESP PCR NOT DETECTED; HUMAN METAPNEUMOVIRUS NOT DETECTED; INFLUENZA A- RESP PCR PANEL NOT DETECTED; INFLUENZA B - RESP PCR PANEL NOT DETECTED; M. PNEUMONIAE- RESP PCR PANEL NOT DETECTED; PARAINFLUENZA VIRUS 1 NOT DETECTED; PARAINFLUENZA VIRUS 2 NOT DETECTED; PARAINFLUENZA VIRUS 3 NOT DETECTED; PARAINFLUENZA VIRUS 4 NOT DETECTED; RHINOVIRUS/ENTEROVIRUS NOT DETECTED; RSV- RESP PCR PANEL NOT DETECTED; SARS-CoV-2 -RESP PCR PANEL NOT DETECTED
[2023-12-25] MEDS: ONDANSETRON ODT 4 MG TABLET TL STA (12:06)
--- NOTE | 2023-12-25 12:11 | ED Physician Documentation ---
History of Present Illness - Stated complaint Stated Complaint: CHEST PX, V/D, SOA - Chief complaint Chief Complaint: General - Additonal information Additional information: Patient is a 23-year-old female presents to the emergency department with symptoms of burning in the chest vomiting diarrhea and nausea. Patient has past medical history of epilepsy.She notes symptoms have been going on for the past 4 days. She notes she has not had any recent sick contacts. She cannot recall when her last normal menstrual period was. Patient has concerns for possible . She notes nausea is worse in the morning then in the evening. P atient denies any dizziness or lightheadedness. She denies any vaginal bleeding. She does report mild cough and congestion as well. Patient has not had any fevers recently. She notes chest pain is persistent and what brought her in this morning. PD PAST MEDICAL HISTORY - Past Medical History Past Medical History: Yes Cardiovascular: None Respiratory: None Neuro: Seizure disorder Endocrine/Autoimmune: None GI: None IT SYSTEMS MANAGER: None : None HEENT: None Psych: None Musculoskeletal: None, Chronic back pain Derm: None - Past Surgical History Past Surgical History: No - Present Medications Home Medications: Ambulatory Orders Medication Instructions Recorded Confirmed Topiramate 50 mg PO DAILY #90 tablet 07/18/23 10/17/23 Lacosamide 100 mg PO BID 14 Days #28 tablet 09/01/23 10/17/23 Prazosin [Minipress] 1 mg PO DAILY 09/01/23 10/17/23 - Allergies Allergies/Adverse Reactions: Allergies Allergy/AdvReac Type Severity Reaction Status Date / Time No Known Drug Allergies Allergy Verified 12/25/23 10:13 - Social History Does the pt smoke?: No Smoking Status: Never smoker Does the pt drink ETOH?: No Does the pt have substance abuse?: Yes Substance Use and Type: Marijuana, CBD oil / Products - Immunizations Immunizations are current?: Yes - POLST Patient has POLST: No PD ED PE NORMAL - Vitals Vital signs reviewed: Yes - General General: Alert and oriented X 3 - HEENT HEENT: Atraumatic - Neck Neck: Supple, no meningeal sign - Cardiac Cardiac: RRR, No murmur, No gallop, No rub - Respiratory Respiratory: No respiratory distress, Clear bilaterally - Abdomen Abdomen: Normal bowel sounds, Non tender, Non distended - Back Back: No CVA TTP - Extremities Extremities: No deformity - Neuro Neuro: Alert and oriented X 3 Eye Opening: Spontaneous Motor: Obeys Commands Verbal: Oriented GCS Score: 15 Results - Vitals Vitals: Vital Signs - 24 hr 12/25/23 10:13 Temperature 36.7 C Heart Rate 75 Respiratory 18 Rate Blood Pressure 110/64 O2 Saturation 100 Oxygen O2 Source Room air - Labs Labs: Laboratory Tests 12/25/23 12/25/23 10:25 12:06 Urine HCG, Qual POSITIVE Nasal Adenovirus (PCR) NOT DETECTED Nasal B. parapertussis DNA (PCR) NOT DETECTED Nasal Coronavir 229E PCR NOT DETECTED Nasal Coronavir HKU1 PCR NOT DETECTED Nasal Coronavir NL63 PCR NOT DETECTED Nasal Coronavir OC43 PCR NOT DETECTED Nasal Enterovir/Rhinovir PCR NOT DETECTED Nasal Influenza B PCR NOT DETECTED Nasal Influenza A PCR NOT DETECTED Nasal Parainfluen 1 PCR NOT DETECTED Nasal Parainfluen 2 PCR NOT DETECTED Nasal Parainfluen 3 PCR NOT DETECTED Nasal Parainfluen 4 PCR NOT DETECTED Nasal RSV (PCR) NOT DETECTED Nasal B.pertussis DNA PCR NOT DETECTED Nasal C.pneumoniae (PCR) NOT DETECTED [place] Human Metapneumo PCR NOT DETECTED Nasal M.pneumoniae (PCR) NOT DETECTED Nasal SARS-CoV-2 (PCR) NOT DETECTED PD Medical Decision Making - ED course Complexity details: reviewed old records, reviewed results ED course: Patient presents to the emergency department for cough burning in her chest symptoms have been going on for the past 4 days she became concerned today with nausea vomiting diarrhea and burning in her chest that worsened today. She notes symptoms are still persistent. She has not taken anything for symptoms at this time. Vital stable on arrival. Physical exam unremarkable on examination. Patient COVID flu RSV as well as respiratory virus panel performed that was negative while in triage. On evaluation patient she becomes anxious and would like to leave. Discussed with patient would like patient to stay for further evaluation however she declines at this time. Discussed with patient risks of her leaving including would like to run test EKG here is benign but would like to get basic labs given persistent nausea or vomiting. Patient is declining at this time would like to be going home. Patient discharged home with strict return precautions and instructions to return to the emergency department with any other new or worsening symptoms she is agreeable with this plan. Departure - Departure Disposition: 01 Home, Self Care Clinical Impression: Nausea and vomiting, Atypical chest pain Condition: Good Instructions: ED Diet Vomiting Diarrhea Comments: You were seen here in the emergency department for your symptoms your workup here I recommended you stay however given reassuring labs and you wanting to leave I feel okay discharging you at this time but return if you notice any worsening chest pain or shortness of breath nausea vomiting abdominal pain fevers dizziness or lightheadedness. These are signs of something worsening and you should return immediately. Follow-up with your PCP in outpatient setting to ensure resolution of symptoms. Forms: PCP List Discharge Date/Time: 12/25/23 12:13
[2023-12-25 12:16] LABS: HCG UR QUAL POSITIVE
== END 2023-12-25 12:13 | disposition home or self-care (01) ==
LOC: ED 10:04
DX: R07.89 Other chest pain (principal); R11.2 Nausea with vomiting, unspecified; R19.7 Diarrhea, unspecified
CPT/HCPCS: 81025; 87633; 93005; 99283; Q0162; 80053; 84484; 85025

== ENCOUNTER 2024-01-04 12:40 | Outpatient (CLI) | payer OTHER | END 2024-01-04 12:41 | disposition home or self-care (01) | LOC: LAB.N 12:40 | PROVIDERS: ATTEND Family Medicine | DX: Z33.1 Pregnant state, incidental (principal) | CPT/HCPCS: 36415; 84702 ==